=== PATIENT | male | born 1960 | race Caucasian/White ===

== ENCOUNTER 2022-04-07 08:40 | Outpatient (REF) | payer OTHER, SELFPAY ==
[2022-04-07 10:55] LABS: MANUAL DIFF FLAG NO
[2022-04-07 10:56] LABS: Basophils Percent Auto 0.4 % (0-2); Eosinophils Absolute Auto 0.2 X10*3/uL (0.0-0.4); Eosinophils Percent Auto 1.8 % (0-4); Hematocrit 44.9 % (42.0-52.0); Hemoglobin 14.6 g/dl (14.0-18.0); Imm Gran Abs Auto 0.02 X10*3/uL (0.00-0.03); Imm Gran Pct Auto 0.2 % (0.0-0.4); Lymphocytes Absolute Auto 2.3 X10*3/uL (1.2-4.9); Lymphocytes Percent Auto 23.8 % (20-40); Mean Corpuscular HGB Conc 32.5 g/dl (31.0-36.0); Mean Corpuscular Hemoglobin 30.3 pg (27.0-33.0); Mean Corpuscular Volume 93.2 fL (80.0-98.0); Mean Platelet Volume 10.2 fL (9.4-12.4); Monocytes Absolute Auto 0.6 X10*3/uL (0.1-1.2); Monocytes Percent Auto 6.3 % (2-11); Neutrophils Absolute Auto 6.5 x10*3/uL (2.0-8.3); Neutrophils Percent Auto 67.5 % (45-73); Platelet Count 217 X10*3/uL (160-400); Red Blood Count 4.82 X10*6/uL (4.60-5.80); Red Cell Distribution Width 15.3 % (11.0-16.0); White Blood Count 9.7 X10*3/uL (4.8-10.8)
[2022-04-07 11:21] LABS: Alanine Aminotransferase 21 U/L (0-40); Aspartate Amino Transferase 17 U/L (5-37); C Reactive Protein 0.46 mg/dL (< or = 0.50); Estimated Glomerular Filt Rate > 60
[2022-04-07 11:34] LABS: Erythrocyte Sedimentation Rate 7 MM/HR (0-15)
== END 2022-04-07 08:41 | disposition home or self-care (01) ==
LOC: HO.10HDL 08:40
PROVIDERS: Visit Provider Internal Medicine Rheumatology
DX: M05.9 Rheumatoid arthritis with rheumatoid factor, unspecified (principal); Z79.899 Other long term (current) drug therapy
CPT/HCPCS: 36415; 82565; 84450; 84460; 85025; 85652; 86140

== ENCOUNTER 2022-05-22 08:40 | Outpatient (REF) | payer OTHER, SELFPAY ==
[2022-05-22 10:43] LABS: MANUAL DIFF FLAG NO
[2022-05-22 10:54] LABS: Basophils Percent Auto 0.4 % (0-2); Eosinophils Absolute Auto 0.1 X10*3/uL (0.0-0.4); Eosinophils Percent Auto 0.7 % (0-4); Hematocrit 44.6 % (42.0-52.0); Hemoglobin 14.8 g/dl (14.0-18.0); Imm Gran Abs Auto 0.02 X10*3/uL (0.00-0.03); Imm Gran Pct Auto 0.2 % (0.0-0.4); Lymphocytes Absolute Auto 2.2 X10*3/uL (1.2-4.9); Lymphocytes Percent Auto 20.3 % (20-40); Mean Corpuscular HGB Conc 33.2 g/dl (31.0-36.0); Mean Corpuscular Hemoglobin 30.5 pg (27.0-33.0); Mean Corpuscular Volume 91.8 fL (80.0-98.0); Mean Platelet Volume 10.9 fL (9.4-12.4); Monocytes Absolute Auto 0.6 X10*3/uL (0.1-1.2); Neutrophils Absolute Auto 7.7 x10*3/uL (2.0-8.3); Neutrophils Percent Auto 72.4 % (45-73); Platelet Count 212 X10*3/uL (160-400); Red Blood Count 4.86 X10*6/uL (4.60-5.80); Red Cell Distribution Width 14.3 % (11.0-16.0); White Blood Count 10.7 X10*3/uL (4.8-10.8)
[2022-05-22 11:14] LABS: Alanine Aminotransferase 27 U/L (0-40); Aspartate Amino Transferase 21 U/L (5-37); C Reactive Protein 0.92 mg/dL (< or = 0.50); Estimated Glomerular Filt Rate > 60
[2022-05-22 11:50] LABS: Erythrocyte Sedimentation Rate 12 MM/HR (0-15)
== END 2022-05-22 08:41 | disposition home or self-care (01) ==
LOC: HO.10HDL 08:40
PROVIDERS: Visit Provider Internal Medicine Rheumatology
DX: M05.9 Rheumatoid arthritis with rheumatoid factor, unspecified (principal); Z79.899 Other long term (current) drug therapy
CPT/HCPCS: 36415; 82565; 84450; 84460; 85025; 85652; 86140

== ENCOUNTER → 2022-05-23 08:45 | Outpatient (BNVA) | payer OTHER, SELFPAY | PROVIDERS: PCP Internal Medicine; Referring Provider Internal Medicine; Visit Provider Internal Medicine Rheumatology | DX: M05.79 Rheumatoid arthritis with rheumatoid factor of multiple sites without organ or systems involvement (principal); Z79.899 Other long term (current) drug therapy; Z23 Encounter for immunization | CPT/HCPCS: 90471; 90686 ==

== ENCOUNTER 2022-08-31 09:45 | Outpatient (REF) | payer OTHER, SELFPAY ==
[2022-08-31 10:54] LABS: MANUAL DIFF FLAG NO
[2022-08-31 11:26] LABS: Basophils Percent Auto 0.4 % (0-2); Eosinophils Absolute Auto 0.1 X10*3/uL (0.0-0.4); Eosinophils Percent Auto 1.3 % (0-4); Hematocrit 40.5 % (42.0-52.0); Hemoglobin 13.4 g/dl (14.0-18.0); Imm Gran Abs Auto 0.03 X10*3/uL (0.00-0.03); Imm Gran Pct Auto 0.3 % (0.0-0.4); Lymphocytes Absolute Auto 2.2 X10*3/uL (1.2-4.9); Lymphocytes Percent Auto 22.5 % (20-40); Mean Corpuscular HGB Conc 33.1 g/dl (31.0-36.0); Mean Corpuscular Hemoglobin 30.6 pg (27.0-33.0); Mean Corpuscular Volume 92.5 fL (80.0-98.0); Mean Platelet Volume 10.7 fL (9.4-12.4); Monocytes Absolute Auto 0.6 X10*3/uL (0.1-1.2); Monocytes Percent Auto 6.4 % (2-11); Neutrophils Absolute Auto 6.6 x10*3/uL (2.0-8.3); Neutrophils Percent Auto 69.1 % (45-73); Platelet Count 236 X10*3/uL (160-400); Red Blood Count 4.38 X10*6/uL (4.60-5.80); Red Cell Distribution Width 15.6 % (11.0-16.0); White Blood Count 9.6 X10*3/uL (4.8-10.8)
[2022-08-31 11:47] LABS: Alanine Aminotransferase 13 U/L (0-40); Aspartate Amino Transferase 18 U/L (5-37); C Reactive Protein 1.85 mg/dL (< or = 0.50); Estimated Glomerular Filt Rate > 60
[2022-08-31 12:04] LABS: Erythrocyte Sedimentation Rate 9 MM/HR (0-15)
== END 2022-08-31 09:46 | disposition home or self-care (01) ==
LOC: HO.10HDL 09:45
PROVIDERS: Visit Provider Internal Medicine Rheumatology
DX: M05.79 Rheumatoid arthritis with rheumatoid factor of multiple sites without organ or systems involvement (principal); Z79.899 Other long term (current) drug therapy
CPT/HCPCS: 36415; 82565; 84450; 84460; 85025; 85652; 86140

== ENCOUNTER → 2022-09-14 08:29 | Outpatient (BNVA) | payer OTHER, SELFPAY | PROVIDERS: PCP Internal Medicine; Visit Provider Internal Medicine Rheumatology | DX: Z13.89 Encounter for screening for other disorder (principal) ==

== ENCOUNTER 2023-01-05 08:30 | Outpatient (REF) | payer OTHER, SELFPAY ==
[2023-01-05 10:45] LABS: MANUAL DIFF FLAG NO
[2023-01-05 10:51] LABS: Basophils Absolute Auto 0.1 X10*3/uL (0.0-0.2); Basophils Percent Auto 0.5 % (0-2); Eosinophils Absolute Auto 0.2 X10*3/uL (0.0-0.4); Eosinophils Percent Auto 1.5 % (0-4); Hematocrit 42.2 % (42.0-52.0); Imm Gran Abs Auto 0.03 X10*3/uL (0.00-0.03); Imm Gran Pct Auto 0.3 % (0.0-0.4); Lymphocytes Absolute Auto 2.8 X10*3/uL (1.2-4.9); Mean Corpuscular HGB Conc 33.2 g/dl (31.0-36.0); Mean Corpuscular Hemoglobin 30.7 pg (27.0-33.0); Mean Corpuscular Volume 92.5 fL (80.0-98.0); Mean Platelet Volume 10.6 fL (9.4-12.4); Monocytes Absolute Auto 0.7 X10*3/uL (0.1-1.2); Neutrophils Absolute Auto 6.7 x10*3/uL (2.0-8.3); Neutrophils Percent Auto 63.7 % (45-73); Platelet Count 237 X10*3/uL (160-400); Red Blood Count 4.56 X10*6/uL (4.60-5.80); Red Cell Distribution Width 15.8 % (11.0-16.0); White Blood Count 10.5 X10*3/uL (4.8-10.8)
[2023-01-05 11:06] LABS: Alanine Aminotransferase 21 U/L (0-40); Aspartate Amino Transferase 23 U/L (5-37); C Reactive Protein 0.79 mg/dL (< or = 0.50); Estimated Glomerular Filt Rate > 60
[2023-01-05 11:33] LABS: Erythrocyte Sedimentation Rate 7 MM/HR (0-15)
== END 2023-01-05 08:31 | disposition home or self-care (01) ==
LOC: HO.10HDL 08:30
PROVIDERS: Visit Provider Internal Medicine Rheumatology
DX: M05.79 Rheumatoid arthritis with rheumatoid factor of multiple sites without organ or systems involvement (principal); Z79.899 Other long term (current) drug therapy
CPT/HCPCS: 36415; 82565; 84450; 84460; 85025; 85652; 86140

== ENCOUNTER → 2023-01-11 07:52 | Outpatient (BNVA) | payer OTHER, SELFPAY | PROVIDERS: PCP Internal Medicine; Visit Provider Internal Medicine Rheumatology ==

== ENCOUNTER 2023-01-11 08:32 | Outpatient (REF) | payer OTHER, SELFPAY | END 2023-01-11 08:33 | disposition home or self-care (01) | LOC: HO.10HDL 08:32 | PROVIDERS: Visit Provider Internal Medicine Rheumatology | DX: Z11.1 Encounter for screening for respiratory tuberculosis (principal); J44.9 Chronic obstructive pulmonary disease, unspecified | CPT/HCPCS: 36415; 86481 ==

== ENCOUNTER 2023-04-24 08:22 | Outpatient (REF) | payer OTHER, SELFPAY ==
[2023-04-24 11:06] LABS: MANUAL DIFF FLAG NO
[2023-04-24 11:13] LABS: Basophils Absolute Auto 0.1 X10*3/uL (0.0-0.2); Basophils Percent Auto 0.5 % (0-2); Eosinophils Absolute Auto 0.1 X10*3/uL (0.0-0.4); Eosinophils Percent Auto 0.9 % (0-4); Hematocrit 45.4 % (42.0-52.0); Hemoglobin 14.8 g/dl (14.0-18.0); Imm Gran Abs Auto 0.02 X10*3/uL (0.00-0.03); Imm Gran Pct Auto 0.2 % (0.0-0.4); Lymphocytes Absolute Auto 3.1 X10*3/uL (1.2-4.9); Lymphocytes Percent Auto 26.9 % (20-40); Mean Corpuscular HGB Conc 32.6 g/dl (31.0-36.0); Mean Corpuscular Hemoglobin 30.5 pg (27.0-33.0); Mean Corpuscular Volume 93.6 fL (80.0-98.0); Mean Platelet Volume 10.2 fL (9.4-12.4); Monocytes Absolute Auto 0.7 X10*3/uL (0.1-1.2); Monocytes Percent Auto 6.1 % (2-11); Neutrophils Absolute Auto 7.4 x10*3/uL (2.0-8.3); Neutrophils Percent Auto 65.4 % (45-73); Platelet Count 289 X10*3/uL (160-400); Red Blood Count 4.85 X10*6/uL (4.60-5.80); Red Cell Distribution Width 14.8 % (11.0-16.0); White Blood Count 11.3 X10*3/uL (4.8-10.8)
[2023-04-24 11:26] LABS: Alanine Aminotransferase 20 U/L (0-40); Aspartate Amino Transferase 16 U/L (5-37); C Reactive Protein 0.21 mg/dL (< or = 0.50)
[2023-04-24 11:50] LABS: Erythrocyte Sedimentation Rate 11 MM/HR (0-15)
== END 2023-04-24 08:23 | disposition home or self-care (01) ==
LOC: HO.10HDL 08:22
PROVIDERS: Visit Provider Internal Medicine Rheumatology
DX: M05.79 Rheumatoid arthritis with rheumatoid factor of multiple sites without organ or systems involvement (principal); Z79.899 Other long term (current) drug therapy
CPT/HCPCS: 36415; 84450; 84460; 85025; 85652; 86140

== ENCOUNTER 2023-04-30 08:06 | Outpatient (AMB) | payer OTHER, SELFPAY ==
--- NOTE | 2023-04-30 08:04 | A.OFFVIS_ITS ---
Intake Vital Signs 04/30/23 08:06 Height 5 ft 8 in Weight 168 lb 13.985 oz BMI 25.7 BP 140/90 H Blood Pressure Location Lt brachial Position Sitting Pulse 107 H Pulse Source Pulse Oximeter Temp 97.2 F Temp Source Skin Pulse Oximetry (%) 96 Oxygen Delivery Method Room Air Intake Visit Reasons: RA Intake Note: Patient presents today to follow up on RA. 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 He remains on 20 mg weekly methotrexate and folic acid 1 mg daily. THe takes 2 tablets to 4 tablets of aspirin in the mornings as well. Last time when he was here we thought he had more synovitis in the wrists so Enbrel 50 mg weekly was added. That has improved the situation as he does not seem to have much dis comfort at all in the wrists. 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 About 2 or 3 weeks ago he did call us with symptoms of the COVID infection. He felt only sick for a day or 2. We told him to hold a dose of th Enbrel. His was sick her for about a week. His breathing has remained stable with no productive cough. He notes a skin lesion on the back of his neck. He did see the PCP about this and topical antibiotic ointment was recommended. [facility] Medical History (Updated 05/23/22 @ 07:45 by Bret Bunn MD) Smoker Alcohol abuse Ventral hernia Surgical History History of hydrocelectomy Family History Mother Hypertension Father No problems noted. Social History Household Members: Spouse Housing: House Are you a primary pediatric acute care unit nurse to a significant other at home: No Do you presently have visiting nurse or other home services: No Alcohol intake: never Tobacco use type: Cigar e-Cigarette/Vaping Use: Never Used service: No Current occupational status: employed Current occupation: SELF EMPLOYED [employer] Review of Systems Const Details: Negative for appetite change, weight change, fever, chills, malaise and fatigue Eyes Details: Negative for vision change, dry eyes,headaches and dizziness ENT Details: Negative for hearing change, tinnitus, oral ulcer, nose bleeds and oral dryness. Card Details: Negative chest pain, edema and syncope Resp Details: Negative for SOB, cough and wheezing GI Details: Negative indigestion/heartburn, nausea, abdominal pain, bowel changes, diarrhea, constipation and bloody stool. Jose/Lymph Details: Negative for excessive bruising or bleeding. Physical Exam Vital Signs: Last Vital Signs Temp 97.2 F 04/30/23 08:06 Pulse 107 H 04/30/23 08:06 BP 140/90 H 04/30/23 08:06 Pulse Ox 96 04/30/23 08:06 Oxygen Delivery Method Room Air 04/30/23 08:06 BMI result Body Mass Index 25.7 APPEARANCE: Patient in no acute distress EYES no redness, pupils equal and reactive to light, eyelids normal EXTREMITIES: No edema, no calf tenderness, normal peripheral pulses. SKIN: On the back of the neck just below the hairline is a 1 cm area that looks like an abrasion. It is not indurated and the surrounding skin is not red. This potentially could be just scratched area or perhaps a draining sebaceous cyst although I do not feel any subcutaneous structure. I told him he should keep an eye on it and topical antibiotics would be appropriate for now. If redness extends beyond the area of the abraded skin he may need some oral antibiotics. JOINT EXAM: Cervical Spine:.? Full range of motion without pain; no tenderness. Thoracic Spine:.? No scoliosis.? No tenderness on palpation. Lumbar Spine:.? Alignment normal.? Full range of motion without pain, no tenderness. Chest Wall:.? No tenderness, swelling, increased warmth or erythema. Hands:? Right: Mild swelling of the 1st and 3rd MCP joints, MCP are not tender.? There is nontender bony enlargement at the 2nd DIP with some flexion deformity.? The patient said this is a result of old injury.? No thenar atrophy or sensory loss.? Left:? No tenderness with slight swelling at the 1st MCP.? There is mild bony enlargement at the 2nd through 5th PIP joints.? These are not tender. Wrists:? Right:? No pain with flexion extension at 45 degrees. There is minimal swelling and no tenderness.? No redness or warmth.? Left:? No discomfort with flexion extension at? 60 degrees with no tenderness or swelling. Elbows:. Normal pain-free range of motion without tenderness, swelling, increased warmth or erythema. Shoulders:.?? Full range of motion without pain. No tenderness, weakness, swelling, increased warmth or erythema. Hips:.? Full range of motion without pain. Hip bursa:.? No tenderness. Knees:.?? Normal pain-free range of motion with mild patellofemoral crepitus but no effusion, tenderness, swelling, increased warmth or erythema.? Ankles:.? Normal pain-free range of motion without tenderness, swelling, increased warmth or erythema. Feet:.? Normal pain-free range of motion with mild 1st MTP bony enlargement and tenderness.? Elsewhere no swelling, increased warmth or erythema. ? Results Reviewed Results Reviewed: Laboratory Tests 04/24/23 04/24/23 08:30 09:30 WBC 11.3 H Hgb 14.8 ESR 11 AST 16 ALT 20 C-Reactive Protein 0.21 Assessment & Plan Assessment & Plan (1) Long-term use of immunosuppressant medication: Code(s): Z79.899 - Other residential (current) drug therapy (2) COPD (chronic obstructive pulmonary disease): Code(s): J44.9 - Chronic obstructive pulmonary disease, unspecified (3) Seropositive rheumatoid arthritis of multiple joints: Comment: Onset August,. RF and CCP positive Methotrexate started end of September 2016; Humira added at the end of January 2017 Humira held -02/23 - skin infection/trauma -not restarted but methotrexate continued Code(s): M05.79 - Rheumatoid arthritis with rheumatoid factor of multiple sites without organ or systems involvement Plan: Rheumatoid arthritis with some improvement in symptoms with the addition of the Enbrel. His COPD seems stable and the COVID infection did not flare-up any significant respiratory symptoms. I think he could continue with the current regimen. He should have his check the skin lesion and if there is increasing redness around the abrasion site systemic antibiotics may be necessary. He has not yet received the flu shot. I said he should try to get this done soon. The COVID vaccine could be put off for 2 months since he just had an infection. I told him to hold the methotrexate the week after the vaccinations. He should get lab work again in June and August. We will arrange for follow-up in 4 months. Orders: Orders Alanine Aminotransferase Today M05.79 - Rheumatoid arthritis with rheumatoid factor of multiple sites without organ or systems involvement, Z79.899 - Other residential (current) drug therapy Complete Blood Count Auto Diff Today M05.79 - Rheumatoid arthritis with rheumatoid factor of multiple sites without organ or systems involvement, Z79.899 - Other director long term care (current) drug therapy Alanine Aminotransferase 1 Month M05.79 - Rheumatoid arthritis with rheumatoid factor of multiple sites without organ or systems involvement, Z79.899 - Other director long term care (current) drug therapy Complete Blood Count Auto Diff 1 Month M05.79 - Rheumatoid arthritis with rheumatoid factor of multiple sites without organ or systems involvement, Z79.899 - Other director long term care (current) drug therapy Creatinine 1 Month M05.79 - Rheumatoid arthritis with rheumatoid factor of multiple sites without organ or systems involvement, Z79.899 - Other residential (current) drug therapy Aspartate Amino Transferase 1 Month M05.79 - Rheumatoid arthritis with rheumatoid factor of multiple sites without organ or systems involvement, Z79.899 - Other director long term care (current) drug therapy Erythrocyte Sedimentation Rate Today M05.79 - Rheumatoid arthritis with rheumatoid factor of multiple sites without organ or systems involvement C Reactive Protein Today M05.79 - Rheumatoid arthritis with rheumatoid factor of multiple sites without organ or systems involvement Aspartate Amino Transferase Today M05.79 - Rheumatoid arthritis with rheumatoid factor of multiple sites without organ or systems involvement, Z79.899 - Other director long term care (current) drug therapy Creatinine Today M05.79 - Rheumatoid arthritis with rheumatoid factor of multiple sites without organ or systems involvement, Z79.899 - Other residential (current) drug therapy Erythrocyte Sedimentation Rate 1 Month M05.79 - Rheumatoid arthritis with rheumatoid factor of multiple sites without organ or systems involvement C Reactive Protein 1 Month M05.79 - Rheumatoid arthritis with rheumatoid factor of multiple sites without organ or systems involvement Coding Level of Care Code Est Pt Level 3 (77675) Diagnoses Long-term use of immunosuppressant medication Z79.899 COPD (chronic obstructive pulmonary disease) J44.9 Seropositive rheumatoid arthritis of multiple joints M05.79
[2023-04-30 08:06] VITALS: BP 140/90; PULSE 107; TEMP 36.2; O2SAT 96; BMI 25.7
== END 2023-04-30 08:24 | disposition home or self-care (01) ==
PROVIDERS: PCP Internal Medicine; Visit Provider Internal Medicine Rheumatology
DX: Z79.899 Other long term (current) drug therapy (principal); J44.9 Chronic obstructive pulmonary disease, unspecified; M05.79 Rheumatoid arthritis with rheumatoid factor of multiple sites without organ or systems involvement
CPT/HCPCS: 99213

== ENCOUNTER → 2023-04-30 08:06 | Outpatient (BNVA) | payer OTHER, SELFPAY | PROVIDERS: PCP Internal Medicine; Visit Provider Internal Medicine Rheumatology ==

== ENCOUNTER 2023-08-28 08:40 | Outpatient (REF) | payer OTHER, SELFPAY ==
[2023-08-28 10:51] LABS: MANUAL DIFF FLAG NO
[2023-08-28 11:04] LABS: Basophils Absolute Auto 0.1 X10*3/uL (0.0-0.2); Basophils Percent Auto 0.5 % (0-2); Eosinophils Absolute Auto 0.3 X10*3/uL (0.0-0.4); Hematocrit 45.3 % (42.0-52.0); Hemoglobin 15.1 g/dl (14.0-18.0); Imm Gran Abs Auto 0.03 X10*3/uL (0.00-0.03); Imm Gran Pct Auto 0.3 % (0.0-0.4); Lymphocytes Absolute Auto 2.7 X10*3/uL (1.2-4.9); Lymphocytes Percent Auto 28.8 % (20-40); Mean Corpuscular HGB Conc 33.3 g/dl (31.0-36.0); Mean Platelet Volume 10.7 fL (9.4-12.4); Monocytes Absolute Auto 0.5 X10*3/uL (0.1-1.2); Monocytes Percent Auto 5.8 % (2-11); Neutrophils Absolute Auto 5.8 x10*3/uL (2.0-8.3); Neutrophils Percent Auto 61.6 % (45-73); Platelet Count 197 X10*3/uL (160-400); Red Blood Count 4.87 X10*6/uL (4.60-5.80); Red Cell Distribution Width 14.5 % (11.0-16.0); White Blood Count 9.4 X10*3/uL (4.8-10.8)
[2023-08-28 11:07] LABS: Alanine Aminotransferase 20 U/L (0-40); Aspartate Amino Transferase 20 U/L (5-37); C Reactive Protein 0.26 mg/dL (< or = 0.50); Estimated Glomerular Filt Rate > 60
[2023-08-28 11:49] LABS: Erythrocyte Sedimentation Rate 2 MM/HR (0-15)
== END 2023-08-28 08:41 | disposition home or self-care (01) ==
LOC: HO.10HDL 08:40
PROVIDERS: Referring Provider Internal Medicine; Visit Provider Internal Medicine Rheumatology
DX: M05.79 Rheumatoid arthritis with rheumatoid factor of multiple sites without organ or systems involvement (principal); Z79.899 Other long term (current) drug therapy
CPT/HCPCS: 36415; 82565; 84450; 84460; 85025; 85652; 86140

== ENCOUNTER 2023-08-31 08:41 | Outpatient (AMB) | payer OTHER, SELFPAY ==
--- NOTE | 2023-08-31 08:42 | A.OFFVIS_ITS ---
Intake Vital Signs 08/31/23 08:44 Height 5 ft 8 in Weight 175 lb 14.862 oz BMI 26.7 BP 118/70 Blood Pressure Location Rt brachial Position Sitting Pulse 72 Pulse Source Pulse Oximeter Temp 97 F Temp Source Skin Pulse Oximetry (%) 94 Oxygen Delivery Method Room Air Intake Visit Reasons: RA with fnp Intake Note: Patient last seen 04/30/[address] Bunn, presents today for RA follow up and test results. 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 Laureano, 63yoM returns today for follow-up of his Rheumatoid arthritis. He remains on 20 mg weekly methotrexate, folic acid 1 mg daily and Enbrel 50mg QW. He takes 2 tablets to 4 tablets of aspirin in the mornings as well. He continues to do well and offers no concerns today, his wrists and hands are not swollen or tender per patient. The skin lesion at the nape of the neck has resolved with topical antibiotics. 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 He notes a skin lesion on the back of his neck. He did see the PCP about this and topical antibiotic ointment was recommended. He denies s/s of uveitis or Psoriasis. Prior Visit 04/30/2023 Dr. Bunn The patient returns for evaluation of his rheumatoid arthritis. He remains on 20 mg weekly methotrexate and folic acid 1 mg daily. THe takes 2 tablets to 4 tablets of aspirin in the mornings as well. Last time when he was here we thought he had more synovitis in the wrists so Enbrel 50 mg weekly was added. That has improved the situation as he does not seem to have much discomfort at all in the wrists. 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 About 2 or 3 weeks ago he did call us with symptoms of the COVID infection. He felt only sick for a day or 2. We told him to hold a dose of th Enbrel. His was sick her for about a week. His breathing has remained stable with no productive cough. He notes a skin lesion on the back of his neck. He did see the PCP about this and topical antibiotic ointment was recommended. [facility] Medical History (Updated 08/31/23 @ 08:53 by JAELYN Armas-BC) Smoker Alcohol abuse Ventral hernia Surgical History History of hydrocelectomy Family History Mother Hypertension Father No problems noted. Social History Household Members: Spouse Housing: House Are you a primary career development associate to a significant other at home: No Do you presently have visiting nurse or other home services: No Alcohol intake: never Tobacco use type: Cigar e-Cigarette/Vaping Use: Never Used service: No Current occupational status: employed Current occupation: SELF EMPLOYED [employer] Review of Systems Const All systems reviewed & are unremarkable except as noted in HPI and below Physical Exam Vital Signs: Last Vital Signs Temp 97 F 08/31/23 08:44 BMI result Body Mass Index 26.7 APPEARANCE: Patient in no acute distress EYES no redness, pupils equal and reactive to light, eyelids normal EXTREMITIES: No edema, no calf tenderness, normal peripheral pulses. SKIN: On the back of the neck just below the hairline is the 1 cm area from 04/2023 visit is resolved. JOINT EXAM: Cervical Spine:.? Full range of motion without pain; no tenderness. Thoracic Spine:.? No scoliosis.? No tenderness on palpation. Lumbar Spine:.? Alignment normal.? Full range of motion without pain, no tenderness. Chest Wall:.? No tenderness, swelling, increased warmth or erythema. Hands:? Right: No more mild swelling or tenderness of the 1st and 3rd MCP joints, and other MCP.? There is nontender bony enlargement at the 2nd DIP with some flexion deformity.? The patient said this is a result of old injury.? No thenar atrophy or sensory loss.? Left:? No tenderness with slight swelling at the 1st MCP.? There is mild bony enlargement at the 2nd through 5th PIP joints.? These are not tender. Wrists:? Right:? No pain with flexion extension at 45 degrees. There is no more minimal swelling or tenderness.? No redness or warmth.? Left:? No discomfort with flexion extension at? 60 degrees with no tenderness or swelling. Elbows:. Normal pain-free range of motion without tenderness, swelling, increased warmth or erythema. Shoulders:.?? Full range of motion without pain. No tenderness, weakness, swelling, increased warmth or erythema. Hips:.? Full range of motion without pain. Hip bursa:.? No tenderness. Knees:.?? Normal pain-free range of motion with mild patellofemoral crepitus but no effusion, tenderness, swelling, increased warmth or erythema.? Ankles:.? Normal pain-free range of motion without tenderness, swelling, increased warmth or erythema. Feet:.? Normal pain-free range of motion with mild 1st MTP bony enlargement and tenderness.? Elsewhere no swelling, increased warmth or erythema. ? Results Reviewed Results Reviewed: Laboratory Tests 08/28/23 08:45 WBC 9.4 RBC 4.87 Hgb 15.1 Hct 45.3 ESR 2 Creatinine 0.93 Estimated GFR > 60 AST 20 ALT 20 C-Reactive Protein 0.26 Assessment & Plan Assessment & Plan (1) Long-term use of immunosuppressant medication: Code(s): Z79.899 - Other [place] [facility] (current[facility] drug therapy (2) COPD (chronic obstructive pulmonary disease): Code(s): J44.9 - Chronic obstructive pulmonary disease, unspecified Qualifiers: COPD type: unspecified COPD Qualified Code(s): J44.9 - Chronic obstructive pulmonary disease, unspecified (3) Seropositive rheumatoid arthritis of multiple joints: Comment: Onset August,. 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 He continues to do well and there is no synovitis tenderness to his MCP and IP joints on PE today. His wrist is nontender and there is no swelling. The patient is happy with his progress and is able to use his hands effectively at work. I think we can continue with the current regimen of Methotrexate 20mg QW, folic acid 1 mg daily and Enbrel 50mg QW. There is an outstanding hand x-ray I encouraged patient to have it done. #Senior Care use: His labs are grossly normal. We will continue to monitor CBC, CMP for liver and Kidney functions. The patient knows to hold medications if he develops fever, infections, non-healing wounds to allow for healing and recovery. #COPD: He is without respiratory symptoms today. Follow-up in 4 months Orders: Orders Alanine Aminotransferase 4 Months M05.79 - Rheumatoid arthritis with rheumatoid factor of multiple sites without organ or systems involvement, Z79.899 - Other intermediate teacher (current) drug therapy Aspartate Amino Transferase 4 Months M05.79 - Rheumatoid arthritis with rheumatoid factor of multiple sites without organ or systems involvement, Z79.899 - Other [place] [facility] drug therapy C Reactive Protein 4 Months M05.79 - Rheumatoid arthritis with rheumatoid factor of multiple sites without organ or systems involvement Erythrocyte Sedimentation Rate 4 Months M05.79 - Rheumatoid arthritis with rheumatoid factor of multiple sites without organ or systems involvement XR hand RT min 3V Today M05.79 - Rheumatoid arthritis with rheumatoid factor of multiple sites without organ or systems involvement Complete Blood Count Auto Diff 4 Months M05.79 - Rheumatoid arthritis with rheumatoid factor of multiple sites without organ or systems involvement, Z79.899 - Other [place] [facility] (current) drug therapy Creatinine 4 Months M05.79 - Rheumatoid arthritis with rheumatoid factor of multiple sites without organ or systems involvement, Z79.899 - Other intermediate teacher (current) drug therapy XR hand LT min 3V Today M05.79 - Rheumatoid arthritis with rheumatoid factor of multiple sites without organ or systems involvement Coding Level of Care Code Est Pt Level 3 (14976) Diagnoses Long-term use of immunosuppressant medication Z79.899 Chronic obstructive pulmonary disease, unspecified COPD type J44.9 COPD type: unspecified COPD Seropositive rheumatoid arthritis of multiple joints M05.79
[2023-08-31 08:44] VITALS: BP 118/70; PULSE 72; TEMP 36.1; O2SAT 94; BMI 26.7
== END 2023-08-31 09:05 | disposition home or self-care (01) ==
PROVIDERS: PCP Internal Medicine; Visit Provider Nurse Practitioner Family
DX: Z79.899 Other long term (current) drug therapy (principal); J44.9 Chronic obstructive pulmonary disease, unspecified; M05.79 Rheumatoid arthritis with rheumatoid factor of multiple sites without organ or systems involvement
CPT/HCPCS: 99213

== ENCOUNTER → 2023-08-31 08:41 | Outpatient (BNVA) | payer OTHER, SELFPAY | PROVIDERS: PCP Internal Medicine; Visit Provider Nurse Practitioner Family ==

== ENCOUNTER 2023-12-28 09:20 | Outpatient (REF) | payer OTHER, SELFPAY ==
[2023-12-28 10:46] LABS: MANUAL DIFF FLAG NO
[2023-12-28 10:51] LABS: Basophils Absolute Auto 0.1 X10*3/uL (0.0-0.2); Basophils Percent Auto 0.5 % (0-2); Eosinophils Absolute Auto 0.1 X10*3/uL (0.0-0.4); Eosinophils Percent Auto 1.3 % (0-4); Hematocrit 43.9 % (42.0-52.0); Hemoglobin 14.9 g/dl (14.0-18.0); Imm Gran Abs Auto 0.02 X10*3/uL (0.00-0.03); Imm Gran Pct Auto 0.2 % (0.0-0.4); Lymphocytes Absolute Auto 2.9 X10*3/uL (1.2-4.9); Lymphocytes Percent Auto 30.7 % (20-40); Mean Corpuscular HGB Conc 33.9 g/dl (31.0-36.0); Mean Corpuscular Hemoglobin 31.5 pg (27.0-33.0); Mean Corpuscular Volume 92.8 fL (80.0-98.0); Mean Platelet Volume 10.5 fL (9.4-12.4); Monocytes Absolute Auto 0.8 X10*3/uL (0.1-1.2); Monocytes Percent Auto 7.9 % (2-11); Neutrophils Absolute Auto 5.7 x10*3/uL (2.0-8.3); Neutrophils Percent Auto 59.4 % (45-73); Platelet Count 186 X10*3/uL (160-400); Red Blood Count 4.73 X10*6/uL (4.60-5.80); Red Cell Distribution Width 14.6 % (11.0-16.0); White Blood Count 9.5 X10*3/uL (4.8-10.8)
[2023-12-28 11:17] LABS: Alanine Aminotransferase 18 U/L (0-40); Aspartate Amino Transferase 20 U/L (5-37); C Reactive Protein 0.21 mg/dL (< or = 0.50); Estimated Glomerular Filt Rate > 60
[2023-12-28 11:41] LABS: Erythrocyte Sedimentation Rate 6 MM/HR (0-15)
== END 2023-12-28 09:21 | disposition home or self-care (01) ==
LOC: HO.10HDL 09:20
PROVIDERS: Visit Provider Nurse Practitioner Family
DX: M05.79 Rheumatoid arthritis with rheumatoid factor of multiple sites without organ or systems involvement (principal); Z79.899 Other long term (current) drug therapy
CPT/HCPCS: 36415; 82565; 84450; 84460; 85025; 85652; 86140

== ENCOUNTER 2024-01-02 12:33 | Outpatient (AMB) | payer OTHER, SELFPAY ==
[2024-01-02 12:44] VITALS: BP 142/70; BMI 26.8
--- NOTE | 2024-01-02 12:44 | A.OFFVIS_ITS ---
Vital Signs 01/02/24 12:44 Height 5 ft 8 in Weight 176 lb 5.917 oz BMI 26.8 BP 142/70 H Blood Pressure Location Rt brachial Position Sitting Intake Visit Reasons: SeroPos RA/lm Intake Note: Pt seen today for RA follow up. 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 Accompanied by: Self / Same As Patient Allergies No Known Allergies Allergy (Verified 01/02/24 12:49) Medication List - Last Reconciled 01/02/24 by Cassius Chase MD albuterol sulfate 90 mcg/actuation (Proventil HFA) 2 puffs inhalation Q6H PRN etanercept (Enbrel SureClick) 50 mg subcut QWEEK folic acid 1 mg PO DAILY methotrexate sodium 20 mg (8 x 2.5 mg) PO QWEEK omega 9-olp-lie-fish oil 1,000 mg (120 mg-180 mg) (Fish Oil) 1 cap PO DAILY umeclidinium-vilanterol 62.5-25 mcg/actuation (Anoro Ellipta) 1 inh inhalation DAILY HPI Comments Details: This is a 63-year-old male with seropositive RA who returns for follow-up. He is on methotrexate 20 mg weekly and will weekly. States that he is doing quite well overall with no joint pain swelling or stiffness. States that he is planning to stop smoking very soon [facility] Medical History Smoker Alcohol abuse Ventral hernia Surgical History History of hydrocelectomy Family History Mother Hypertension Father No problems noted. Social History Household Members: Spouse Housing: House Are you a primary field care coordinator to a significant other at home: No Do you presently have visiting nurse or other home services: No Alcohol intake: never Tobacco use type: Cigar e-Cigarette/Vaping Use: Never Used service: No Current occupational status: employed Current occupation: SELF EMPLOYED [employer] Review of Systems Musc Denies arthralgias, Denies joint swelling and Denies stiffness Physical Exam Const General: cooperative, healthy appearing and comfortable Nutritional Appearance: overweight Orientation/consciousness: patient oriented x3 Limitations: no limitations HEENT Head: Yes normocephalic and Yes atraumatic Mouth: moist mucous membranes Resp Effort & Inspection: normal respiratory effort and able to speak in complete sentences Auscultation: clear to auscultation bilaterally Cardio Rate: regular rate Rhythm: regular rhythm Skin General skin exam: no rashes or lesions noted Neuro General: patient oriented x3 Extrem Other: Osteoarthritic changes of both hands with no active synovitis Multi of right index DIP related to old trauma Assessment & Plan Assessment & Plan (1) Seropositive rheumatoid arthritis of multiple joints: Comment: Onset August,. RF and CCP positive Methotrexate started end of September 2016; Humira added at the end of January 2017 Humira held -02/23 - skin infection/trauma -not restarted but methotrexate continued Enbrel added 01/28 Code(s): M05.79 - Rheumatoid arthritis with rheumatoid factor of multiple sites without organ or systems involvement Category: Medical Plan: This is a 63-year-old male with seropositive RA who presents for follow-up. Doing quite well with no active synovitis on methotrexate 20 mg weekly, folic acid 1 mg daily and Enbrel weekly. Continue current meds. Will consider lowering methotrexate in subsequent visits Labs in 3 months and in 6 months before next visit (2) Long-term use of immunosuppressant medication: Code(s): Z79.899 - Other f[facility] (current) drug therapy Category: Medical Plan: Monitor safety lab Plan I spent 25 minutes reviewing patient's chart, evaluating patient, ordering diagnostic workup, counseling patient and documenting in the chart Orders: Orders Complete Blood Count Auto Diff 3 Months M05.79 - Rheumatoid arthritis with rheumatoid factor of multiple sites without organ or systems involvement C Reactive Protein 3 Months M05.79 - Rheumatoid arthritis with rheumatoid factor of multiple sites without organ or systems involvement Erythrocyte Sedimentation Rate 3 Months M05.79 - Rheumatoid arthritis with rheumatoid factor of multiple sites without organ or systems involvement Comprehensive Met. Panel 3 Months M05.79 - Rheumatoid arthritis with rheumatoid factor of multiple sites without organ or systems involvement Complete Blood Count Auto Diff 6 Months M05.79 - Rheumatoid arthritis with rheumatoid factor of multiple sites without organ or systems involvement, Z79.899 - Other [facility] (current) drug therapy Comprehensive Met. Panel 6 Months M05.79 - Rheumatoid arthritis with rheumatoid factor of multiple sites without organ or systems involvement, Z79.899 - Other emt intermediate (current) drug therapy C Reactive Protein 6 Months M05.79 - Rheumatoid arthritis with rheumatoid factor of multiple sites without organ or systems involvement, Z79.899 - Other emt intermediate (current) drug therapy Erythrocyte Sedimentation Rate 6 Months M05.79 - Rheumatoid arthritis with rheumatoid factor of multiple sites without organ or systems involvement, Z79.899 - Other [facility] (current) drug therapy Hepatitis A,B,C Profile 6 Months Z11.59 - Encounter for screening for other viral diseases Medications: Refilled methotrexate sodium 20 mg (8 x 2.5 mg) PO QWEEK 96 tabs 0RF M05.9 - Rheumatoid arthritis with rheumatoid factor, unspecified etanercept (Enbrel SureClick) 50 mg subcut QWEEK 4 mL 5RF M05.79 - Rheumatoid arthritis with rheumatoid factor of multiple sites without organ or systems involvement folic acid 1 mg PO DAILY 90 tabs 3RF M05.9 - Rheumatoid arthritis with rheumatoid factor, unspecified Coding Level of Care Code Est Pt Level 4 (16878) Diagnoses Seropositive rheumatoid arthritis of multiple joints M05.79 Long-term use of immunosuppressant medication Z79.892
== END 2024-01-02 12:58 | disposition home or self-care (01) ==
PROVIDERS: PCP Internal Medicine; Visit Provider Student in an Organized Health Care Education/Training Program
DX: M05.79 Rheumatoid arthritis with rheumatoid factor of multiple sites without organ or systems involvement (principal); Z79.899 Other long term (current) drug therapy
CPT/HCPCS: 99214

== ENCOUNTER → 2024-01-02 12:33 | Outpatient (BNVA) | payer OTHER, SELFPAY | PROVIDERS: PCP Internal Medicine; Visit Provider Student in an Organized Health Care Education/Training Program ==

== ENCOUNTER 2024-05-20 10:11 | Outpatient (REF) | payer OTHER, SELFPAY ==
[2024-05-20 13:17] LABS: MANUAL DIFF FLAG NO
[2024-05-20 13:35] LABS: Basophils Absolute Auto 0.1 X10*3/uL (0.0-0.2); Basophils Percent Auto 0.6 % (0-2); Eosinophils Absolute Auto 0.2 X10*3/uL (0.0-0.4); Eosinophils Percent Auto 2.4 % (0-4); Hematocrit 41.7 % (42.0-52.0); Hemoglobin 13.9 g/dl (14.0-18.0); Imm Gran Abs Auto 0.03 X10*3/uL (0.00-0.03); Imm Gran Pct Auto 0.3 % (0.0-0.4); Lymphocytes Absolute Auto 2.8 X10*3/uL (1.2-4.9); Lymphocytes Percent Auto 31.4 % (20-40); Mean Corpuscular HGB Conc 33.3 g/dl (31.0-36.0); Mean Corpuscular Hemoglobin 32.2 pg (27.0-33.0); Mean Corpuscular Volume 96.5 fL (80.0-98.0); Mean Platelet Volume 10.6 fL (9.4-12.4); Monocytes Absolute Auto 0.5 X10*3/uL (0.1-1.2); Monocytes Percent Auto 6.1 % (2-11); Neutrophils Absolute Auto 5.2 x10*3/uL (2.0-8.3); Neutrophils Percent Auto 59.2 % (45-73); Platelet Count 207 X10*3/uL (160-400); Red Blood Count 4.32 X10*6/uL (4.60-5.80); Red Cell Distribution Width 15.3 % (11.0-16.0); White Blood Count 8.8 X10*3/uL (4.8-10.8)
[2024-05-20 14:12] LABS: Alanine Aminotransferase 26 U/L (0-40); Albumin Level 4.2 g/dL (3.5-5.0); Alkaline Phosphatase 69 U/L (39-117); Anion Gap 10 (12-20); Aspartate Amino Transferase 25 U/L (5-37); Bilirubin Total 0.8 mg/dL (0.0-1.0); Blood Urea Nitrogen 13 mg/dL (9-16); C Reactive Protein 0.22 mg/dL (< or = 0.50); Calcium 9.7 mg/dL (8.4-10.2); Carbon Dioxide 27 mmol/L (22-29); Chloride 106 mmol/L (96-108); Estimated Glomerular Filt Rate > 60; Glucose Random 97 mg/dL (60-115); Sodium 139 mmol/L (135-145)
[2024-05-20 14:13] LABS: Erythrocyte Sedimentation Rate 7 MM/HR (0-15)
== END 2024-05-20 10:12 | disposition home or self-care (01) ==
LOC: HO.HMGCLDS 10:11
PROVIDERS: Visit Provider Student in an Organized Health Care Education/Training Program
DX: M05.79 Rheumatoid arthritis with rheumatoid factor of multiple sites without organ or systems involvement (principal)
CPT/HCPCS: 36415; 80053; 85025; 85652; 86140

== ENCOUNTER 2024-07-03 08:20 | Outpatient (AMB) | payer OTHER, SELFPAY ==
--- NOTE | 2024-07-03 08:27 | A.OFFVIS_ITS ---
Vital Signs 07/03/24 08:32 Height 5 ft 8 in Weight 182 lb 12.211 oz BMI 27.8 BP 142/80 H Blood Pressure Location Lt brachial Position Sitting Pulse 97 Pulse Source Pulse Oximeter Pulse Oximetry (%) 94 Oxygen Delivery Method Room Air Intake Visit Reasons: RA Intake Note: Patient presents for RA. Allergies No Known Allergies Allergy (Verified 07/03/24 08:31) Medication List - Last Reconciled 07/03/24 by Cassius Chase MD albuterol sulfate 90 mcg/actuation (Proventil HFA) 2 puffs inhalation Q6H PRN etanercept (Enbrel SureClick) 50 mg subcut QWEEK folic acid 1 mg PO DAILY methotrexate sodium 15 mg (6 x 2.5 mg) PO QWEEK omega 6-lyx-vom-fish oil 1,000 (120-180) mg (Fish Oil) 1 cap PO DAILY umeclidinium-vilanterol 62.5-25 mcg/actuation (Anoro Ellipta) 1 inh inhalation DAILY HPI Comments Details: This is a 63-year-old male with seropositive RA who returns for follow-up. He is on methotrexate 20 mg weekly and Enbrel weekly. States that he is doing quite well overall with no joint pain swelling or stiffness. Denies any recent illnesses. He has been trying to cut down and quit smoking. He smokes 1 cigar a day [facility] Medical History Smoker Alcohol abuse Ventral hernia Surgical History History of hydrocelectomy Family History Mother Hypertension Father No problems noted. Social History Household Members: Spouse Housing: House Are you a primary home care assistant to a significant other at home: No Do you presently have visiting nurse or other home services: No Alcohol intake: never Tobacco use type: Cigar e-Cigarette/Vaping Use: Never Used service: No Current occupational status: employed Current occupation: S[employer] Review of Systems Musc Denies arthralgias, Denies joint swelling and Denies stiffness Physical Exam Vital Signs: Last Vital Signs Pulse 97 07/03/24 08:32 BP 142/80 H 07/03/24 08:32 Pulse Ox 94 07/03/24 08:32 Oxygen Delivery Method Room Air 07/03/24 08:32 BMI result Body Mass Index 27.8 Const General: cooperative, healthy appearing and comfortable Nutritional Appearance: overweight Orientation/consciousness: patient oriented x3 Limitations: no limitations HEENT Head: Yes normocephalic and Yes atraumatic Mouth: moist mucous membranes Resp Effort & Inspection: normal respiratory effort and able to speak in complete sentences Auscultation: clear to auscultation bilaterally Cardio Rate: regular rate Rhythm: regular rhythm Skin General skin exam: no rashes or lesions noted Neuro General: patient oriented x3 Extrem Other: Osteoarthritic changes of both hands with no active synovitis Deformity i of right index DIP related to old trauma Assessment & Plan Assessment & Plan (1) Seropositive rheumatoid arthritis of multiple joints: Comment: Onset August,. RF and CCP positive Methotrexate started end of September 2016; Humira added at the end of January 2017 Humira held -02/23 - skin infection/trauma -not restarted but methotrexate continued Enbrel added 01/28 Code(s): M05.79 - Rheumatoid arthritis with rheumatoid factor of multiple sites without organ or systems involvement Category: Medical Plan: This is a 63-year-old male with seropositive RA who presents for follow-up. Doing quite well with no active synovitis on methotrexate 20 mg weekly, folic acid 1 mg daily and Enbrel weekly. Reduce methotrexate to 15 mg once weekly Continue other meds as prescribed Labs in 3 months and in 6 months before next visit (2) Long-term use of immunosuppressant medication: Code(s): Z79.899 - Other long term care administrator (current) drug therapy Category: Medical Plan: Monitor safety lab (3) Smoker: Code(s): F17.200 - Nicotine dependence, unspecified, uncomplicated Category: Social Hx Plan: Discussed long-term side effects of smoking including pulmonary and cardiovascular complications as well as increased risk of malignancy. Advised patient to quit Plan I spent 25 minutes reviewing patient's chart, evaluating patient, ordering diagnostic workup, counseling patient and documenting in the chart Orders: Orders Complete Blood Count Auto Diff 3 Months M05.79 - Rheumatoid arthritis with rheumatoid factor of multiple sites without organ or systems involvement, Z79.899 - Other long term care administrator (current) drug therapy C Reactive Protein 3 Months M05.79 - Rheumatoid arthritis with rheumatoid factor of multiple sites without organ or systems involvement, Z79.899 - Other long term care administrator (current) drug therapy Comprehensive Met. Panel 6 Months M05.79 - Rheumatoid arthritis with rheumatoid factor of multiple sites without organ or systems involvement, Z79.899 - Other l eryn term (current) drug therapy C Reactive Protein 6 Months M05.79 - Rheumatoid arthritis with rheumatoid factor of multiple sites without organ or systems involvement, Z79.899 - Other long term care administrator (current) drug therapy Erythrocyte Sedimentation Rate 6 Months M05.79 - Rheumatoid arthritis with rheumatoid factor of multiple sites without organ or systems involvement, Z79.899 - Other long term care administrator (current) drug therapy T Spot TB 3 Months Z11.7 - Encounter for testing for latent tuberculosis infection Comprehensive Met. Panel 3 Months M05.79 - Rheumatoid arthritis with rheumatoid factor of multiple sites without organ or systems involvement, Z79.899 - Other long term care administrator (current) drug therapy Erythrocyte Sedimentation Rate 3 Months M05.79 - Rheumatoid arthritis with rheumatoid factor of multiple sites without organ or systems involvement, Z79.899 - Other long term care administrator (current) drug therapy Complete Blood Count Auto Diff 6 Months M05.79 - Rheumatoid arthritis with rheumatoid factor of multiple sites without organ or systems involvement, Z79.899 - Other long term care administrator (current) drug therapy Hepatitis A,B,C Profile 3 Months Z11.59 - Encounter for screening for other viral diseases Medications: Changed From methotrexate sodium 20 mg (8 x 2.5 mg) PO QWEEK 96 tabs 0RF M05.9 - Rheumatoid arthritis with rheumatoid factor, unspecified To methotrexate sodium 15 mg (6 x 2.5 mg) PO QWEEK 96 tabs 0RF M05.9 - Rheumatoid arthritis with rheumatoid factor, unspecified Coding Level of Care Code Est Pt Level 4 (80904) Complex EM visit Add On G2211 Diagnoses Seropositive rheumatoid arthritis of multiple joints M05.79 Long-term use of immunosuppressant medication Z79. Smoker F17.200
[2024-07-03 08:32] VITALS: BP 142/80; PULSE 97; O2SAT 94; BMI 27.8
== END 2024-07-03 08:45 | disposition home or self-care (01) ==
PROVIDERS: PCP Internal Medicine; Visit Provider Student in an Organized Health Care Education/Training Program
DX: M05.79 Rheumatoid arthritis with rheumatoid factor of multiple sites without organ or systems involvement (principal); Z79.899 Other long term (current) drug therapy; F17.200 Nicotine dependence, unspecified, uncomplicated
CPT/HCPCS: 99214

== ENCOUNTER 2024-12-16 10:50 | Outpatient (REF) | payer OTHER, SELFPAY ==
--- OUTSIDE RECORDS SUMMARY | 2024-12-16 12:50 | XMS_ITS | Encounter Summary ---
Author Organization [facility] [place] [address] Care Team Providers Care Railroad Car Repairman Name Role Phone Randolph Estevez MD Primary Care Provider [phone] Reason for Visit * Reason Onset Date Comments Med Refill 11/17/2024 Encounter Details Date Type Department Care Team ([facility] Contact Info) Description [facility] [address] [phone] Soila Champagne MD [address] [address] Med Refill Social History Tobacco Use Types Packs/Day Years Used Date Smoking Tobacco: Every Day Cigarettes Last attempted to quit: 04/08/2019 Smokeless Tobacco: Never Alcohol Use Standard Drinks/Week Comments Yes 0 (1 standard drink = 0.6 oz pur e alcohol) Sex and Gender Information Value Date Recorded Sex Assigned at Male 12/03/2024 12:25 PM EDT Legal Sex Male 7:04 AM EST Gender Identity Not on file Sexual Orientation Not on file Travel History Travel Start Travel End [place] 11/15/2024 11/23/2024 documented as of this encounter Progress Notes * Leni Lazar MA - 11/17/2024 10:08 AM EDT Medication not listed on her med list * Kade Gonzalez - 11/17/2024 9:40 AM EDT Patient is seeking for refill for Ann stevenson, NOV - documented in this encounter Plan of Treatment Upcoming Encounters Date Type Department Care Team (Late st Contact Info) Description 12/19/2024 8:30 AM EDT Office Visit Pulmonology - [facility] [address] [facility] [address] [place] [phone] Radha Choe MD [address] [place] [address] 12/29/2024 8:30 AM EDT Office Visit Pulmonolgy - [place] [address] [facility] [address] [place] [phone] Soila Champagne MD 175 [facility] [address] [place] [address] documented as of this encounter Visit Diagnoses Not on filedocumented in this encounter Additional Health Concerns Infection Onset Date Last Indicated Resolved Time Tuberculosis Rule-Out 12/03/2024 12/03/2024 documented as of this encounter Care Teams Railroad Car Repairman Relationship Specialty Start Date End Date Randolph Estevez MD [address] [place] [address] PCP - General Family Medicine 10/23/24 documented as of this encounter
[2024-12-16 13:26] LABS: MANUAL DIFF FLAG NO
[2024-12-16 13:32] LABS: Basophils Absolute Auto 0.1 X10*3/uL (0.0-0.2); Basophils Percent Auto 0.6 % (0-2); Eosinophils Absolute Auto 0.1 X10*3/uL (0.0-0.4); Hematocrit 46.4 % (42.0-52.0); Imm Gran Abs Auto 0.03 X10*3/uL (0.00-0.03); Imm Gran Pct Auto 0.3 % (0.0-0.4); Lymphocytes Absolute Auto 2.3 X10*3/uL (1.2-4.9); Lymphocytes Percent Auto 22.8 % (20-40); Mean Corpuscular HGB Conc 32.3 g/dl (31.0-36.0); Mean Corpuscular Hemoglobin 30.1 pg (27.0-33.0); Mean Corpuscular Volume 93.2 fL (80.0-98.0); Mean Platelet Volume 11.2 fL (9.4-12.4); Monocytes Absolute Auto 0.5 X10*3/uL (0.1-1.2); Monocytes Percent Auto 5.4 % (2-11); Neutrophils Percent Auto 69.9 % (45-73); Platelet Count 234 X10*3/uL (160-400); Red Blood Count 4.98 X10*6/uL (4.60-5.80); Red Cell Distribution Width 14.9 % (11.0-16.0)
[2024-12-16 13:58] LABS: Alanine Aminotransferase 22 U/L (0-40); Albumin Level 4.7 g/dL (3.5-5.0); Alkaline Phosphatase 96 U/L (39-117); Anion Gap 13 (12-20); Aspartate Amino Transferase 27 U/L (5-37); Bilirubin Total 0.8 mg/dL (0.0-1.0); Blood Urea Nitrogen 12 mg/dL (9-16); Calcium 9.8 mg/dL (8.4-10.2); Carbon Dioxide 27 mmol/L (22-29); Chloride 105 mmol/L (96-108); Estimated Glomerular Filt Rate > 60; Glucose Random 105 mg/dL (60-115); Potassium 4.3 mmol/L (3.3-5.1); Sodium 141 mmol/L (135-145); Total Protein 7.3 g/dL (6.5-8.0)
[2024-12-16 14:16] LABS: Erythrocyte Sedimentation Rate 11 MM/HR (0-15)
== END 2024-12-16 10:51 | disposition home or self-care (01) ==
LOC: HO.HMGCLDS 10:50
PROVIDERS: Visit Provider Student in an Organized Health Care Education/Training Program
DX: M05.79 Rheumatoid arthritis with rheumatoid factor of multiple sites without organ or systems involvement (principal); Z79.899 Other long term (current) drug therapy
CPT/HCPCS: 36415; 80053; 85025; 85652; 86140

== ENCOUNTER 2025-01-01 08:25 | Outpatient (AMB) | payer OTHER, SELFPAY ==
--- NOTE | 2025-01-01 08:27 | MHC.OFFVIS ---
Vital Signs 01/01/25 08:32 Height 5 ft 8 in Weight 194 lb 7.163 oz BMI 29.6 BP 162/80 H Blood Pressure Location Lt brachial Position Sitting Pulse 88 Pulse Source Pulse Oximeter Pulse Oximetry (%) 99 Oxygen Delivery Method Room Air Intake Visit Reasons: RA Intake Note: Patient presents for RA follow up. Allergies No Known Allergies Allergy (Verified 01/01/25 08:31) HPI Comments Details: Patient is a 64 y.o. male current everyday smoker with COPD, thoracic aortic aneurysm and seropositive rheumatoid arthritis here today for follow up Interval History: Patient last seen 07/03/[address] Chase. At that time he was following up for his seropositive rheumatoid arthritis on etanercept 50 mg weekly and methotrexate 20 mg weekly. He reported he was doing well without any joint pain or stiffness. No active synovitis noted to examined so his methotrexate was decreased from 20 mg weekly to 15 mg weekly Today, With respect to his joint he does not have any new complaints Because of his smoking history he has been getting yearly low dose CT scans. 1 year ago it was noted that he had an abnormal scan with pulmonary nodules. 6 months later a repeat scan was done which showed progression of disease. He ultimately had bronchoscopy with biopsy. which showed evidence of organizing PNA Patient denies worsening SOB Has decreased his smoking to 1 cigar per week Rheumatologic History: Onset August,. RF and CCP positive Methotrexate started end of September 2016; Humira added at the end of January 2017 Humira held -02/23 - skin infection/trauma -not restarted but methotrexate continued Enbrel added 01/28 Current Rheumatology Medication(s): Humira 40mg SC weekly Methotrexate 15mg weekly Folic acid 1mg daily [facility] Medical History (Updated 07/03/24 @ 08:50 by Cassius Chase MD) Smoker Alcohol abuse Ventral hernia Surgical History History of hydrocelectomy Family History Mother Hypertension Father No problems noted. Social History Household Members: Spouse Housing: House Are you a primary nursing care partner to a significant other at home: No Do you presently have visiting nurse or other home services: No Alcohol intake: never Tobacco use type: Cigar e-Cigarette/Vaping Use: Never Used service: No Current occupational status: employed Current occupation: SELF EM[employer] Review of Systems Const Details: Review of Systems Constitutional: Denies fever, chills, weight loss ENT: Denies vision changes, eye pain or eye redness, dental caries, dry mouth GI: Denies nausea, vomiting, diarrhea, abdominal pain, change in BM Pulm: Denies SOB, TAYLOR, hemoptysis, wheezing Cards: Denies chest pain, palpitations Skin: Denies Raynaud's, rash, nail changes, photosensitivity, SHAKE BACKBOARD NOTCHER: Denies headaches, weakness, paresthesias, recurrent falls MSK: as per HPI All other systems reviewed and are unremarkable except noted above Physical Exam Vital Signs: Last Vital Signs Pulse 88 01/01/25 08:32 BP 162/80 H 01/01/25 08:32 Pulse Ox 99 01/01/25 08:32 Oxygen Delivery Method Room Air 01/01/25 08:32 BMI result Body Mass Index 29.6 Vital signs reviewed Physical Examination CONSTITUITIONAL Patient alert and cooperative. Well appearing and in no apparent painful distress HEENT Conjunctiva and sclera clear. No lymphadenopathy. CHEST/RESPIRATORY SYSTEM Normal respiratory effort and able to speak in complete sentences. Clear to auscultation bilaterally. No crackles, rales, rhonchi, wheezes heard. CARDIAC SYSTEM Regular rate and rhythm. S1 and S2 heard no murmurs. Radial pulses intact bilaterally MSK Hands Right Hand: Able to make a fist. No swelling or tenderness to palpation of these joints. Chronic flexion deformity of the 2nd PIP. Herbeden's nodes Left Hand: Able to make a fist. No swelling or tenderness to palpation of these joints. No deformities noted. Wrists Right Wrist: Decreased wrist extension. No swelling or TTP Left Wrist: Decreased wrist extension. No swelling or TTP Elbows Right Elbow: Full ROM. No swelling or TTP. No TTP of the medial and lateral epicondyles Left Elbow: Full ROM. No swelling or TTP. No TTP of the medial and lateral epicondyles Shoulders Right shoulder: Full ROM. No swelling noted. No TTP of the AC joint, subacromial bursa or posterior shoulder Left shoulder: Full ROM. No swelling noted. No TTP of the AC joint, subacromial bursa or posterior shoulder Knees Right knee: Full ROM. No swelling noted. No TTP of the knee joint lie or pes anserine bursa Left knee: Full ROM. No swelling noted. No TTP of the knee joint lie or pes anserine bursa. Crepitations felt bilaterally Ankles Right ankle: Good ankle dorsiflexion and plantar flexion. No swelling. No TTP of the ankle joint Left ankle: Good ankle dorsiflexion and plantar flexion. No swelling. No TTP of the ankle joint Feet Right foot: Negative squeeze test Left foot: Negative squeeze test Tender points? No tenderness to palpation of the bilateral trapezius, supraspinatus, anterior costochondral junctions, bilateral suboccipital muscle insertions SKIN No rashes Results Reviewed Results Reviewed: Laboratory Tests 05/20/24 12/16/24 10:15 10:54 WBC 8.8 10.0 RBC 4.32 L 4.98 Hgb 13.9 L 15.0 Hct 41.7 L 46.4 Plt Count 207 234 ESR 7 11 Sodium 139 141 Potassium 4.0 4.3 Chloride 106 105 Carbon Dioxide 27 27 BUN 13 12 Creatinine 0.81 0.95 Calcium 9.7 9.8 Total Bilirubin 0.8 0.8 AST 25 27 ALT 26 22 Alkaline Phosphatase 69 96 C-Reactive Protein 0.22 0.70 H Infectious serologies 01/11/23 08:34 TB Test (T-Spot) Com Negative CT Chest w/o contrast 10/2024 FINDINGS: Lung/pleura: The central airways are clear and normal in caliber. Mild centrilobular emphysema. Multiple small irregular bilateral pulmonary nodules have increased in size and number. These range up to 7 mm in diameter. Small amount of osteophyte associated scarring in the medial right lower lobe. No pleural effusion or pneumothorax Mediastinum/sandra: No mediastinal mass or lymphadenopathy. No appreciable hilar lymphadenopathy on limited noncontrast evaluation. Vasculature: Normal caliber pulmonary arteries. Mild atherosclerotic calcifications of the great vessels Cardiac: Normal heart size. Moderate coronary artery calcification. Chest wall: No axillary or supraclavicular lymphadenopathy Limited abdomen: Stable left adrenal adenoma Bones: Moderate degenerative changes of the spine IMPRESSION: Interval increase in size and number of multiple irregular subcentimeter pulmonary nodules. While it is possible that these are inflammatory, the interval progression raises concerns for metastatic disease. Lung-RADS 4a. Consider further evaluation with PET scan to suggest for site of primary neoplastic disease. The pulmonary nodules are small and may be below the resolution of a PET Pathology 11/2024 Lung, right upper lobe, cryo biopsy: New line benign lung tissue with chronic inflammation, fiber elastic scarring and overall features of organizing pneumonia. Negative for granulomas and malignancy Lung, left upper lobe, cryo biopsy: New line benign lung tissue with chronic inflammation, fiber elastic scarring and overall features of organizing pneumonia. Negative for granulomas and malignancy Assessment & Plan Assessment & Plan (1) Seropositive rheumatoid arthritis of multiple joints: Comment: Onset August,. RF and CCP positive Methotrexate started end of September 2016; Humira added at the end of January 2017 Humira held -02/23 - skin infection/trauma -not restarted but methotrexate continued Enbrel added 01/28 Code(s): M05.79 - Rheumatoid arthritis with rheumatoid factor of multiple sites without organ or systems involvement Category: Medical Plan: #Seropositive RA Patient is a 64 y.o male with seropositive RA here today for follow up. Currently undergoing work up for pulmonary nodules, with biopsy showing chronic inflammation and fibroeleastic scarring concerning for features of organizing PNA. This can definitely be associated with his underlying seropositive disease. I would have expected him to have some underlying disease activity and his exam today is without synovitis, however there have been some reports that organizing pneumonia can be present even in patient's with well controlled RA and on TNF inhibitors. I will reach out to the patient's aerophysicist to discuss the case. For now we will keep the Enbrel until his repeat CT scan in January. Steroids are usually a good treatment option and if steroid resistant/dependent we can consider alternative treatments Plan - Continue Enbrel 50mg SC weekly - Methotrexate 15mg weekly - Folic acid 1 mg daily - RTC February after pulm appt and rpt CT scan Sachin S, Pratibha Y, Aakash M. Organizing Pneumonia in Rheumatoid Arthritis Patients: A Case-Based Review. Clin Med Insights Circ Respir Pulm Med. 2015 May 04;9(Suppl 1):69-80. doi: 10.4137/CCR.G58557. PMID: 73404930; PMCID: [id number]. (2) Encounter for methotrexate monitoring: Code(s): Z51.81 - Encounter for therapeutic drug level monitoring; Z79.631 - terminal carman (current) use of antimetabolite agent Plan: #Long-term Current Use of Methotrexate Discussed with patient the benefits and risks of methotrexate for managing their rheumatic condition Benefits include reduced pain, reduced mortality, maintenance of remission and reduction of flares Risks include oral ulcers, photosensitivity, hepatotoxicity, hematologic toxicity, pneumonitis, flu-like symptoms (especially day after administration), nodulosis, lymphomas ? Limit alcohol and avoid Bactrim ? Monitoring: CBC, BMP, LFTs every 3-4 months and hepatitis serologies as needed (3) Encounter for monitoring of adalimumab therapy: Code(s): Z51.81 - Encounter for therapeutic drug level monitoring; Z79.620 - care home (current) use of immunosuppressive biologic Plan: #Long-term Use of TNF Inhibitors: Humira Discussed with the patient the benefits and risks of TNF inhibitors for the management of the rheumatic condition Benefits include reduce pain, maintenance of remission and reduction of flares as well as progression of the disease Risks include injection sites/infusion reactions, serious infections (such as bacterial infections, opportunistic infections), malignancy, delaminating syndromes, autoimmune phenomena, CHF exacerbations, palmar plantar psoriasis and cytopenias Recommended rotating injection sites, and holding medication during and for up to 1 week after resolution of a febrile illness or open skin wound Plan I spent 40 minutes reviewing the record and labs, taking a history, examining the patient, discussing the treatment plan, discussing case with pulm and documenting in the medical record Coding Level of Care Code Est Pt Level 4 (64963) Complex EM visit Add On G2211 Diagnoses Seropositive rheumatoid arthritis of multiple joints M05.79 Encounter for methotrexate monitoring Z51.81; Z79.631 Encounter for monitoring of adalimumab therapy Z51.81; Z79.620
[2025-01-01 08:32] VITALS: BP 162/80; PULSE 88; O2SAT 99; BMI 29.6
--- OUTSIDE RECORDS SUMMARY | 2025-01-01 08:42 | XMS_ITS ---
Author Name [facility] Organization Unknown Results Test Name/Text Value Interpretation Date Range Source Citation Ref Lab Test The technical components of this case were performed at [address] [address] CLIA # [id number] 12/05/2024 [facility] Citation Ref Lab Test The technical components of this case were performed at [address] [address] CLIA # [id number] 12/05/2024 [facility] Clinical Information IN CYTO 12/05/2024 [facility] History of Medication Use Medication Directions Dispensed Refills Start Date End Date Stat ipratropium-albutero L (DUONEB) 0.5-2.5 mg/3 mL nebulizer solution 3 mL 3 mL, nebulization, Once as needed, wheezing, Starting on Sun12/03/24 at 1946, For 1 dose, Recovery (only) 12/03/2024 completed acetaminophen (TYLENOL) tablet 650 mg 650 mg, oral, Once as needed, mild pain, pain (1-3), Starting on Sun12/03/24 at 1946, For 1 dose, Recovery (only), pain (1-3) 12/03/2024 active dexAMETHasone (DECADRON) injection 4 mg 4 mg, intravenous, Once as needed, nausea and vomitting, Starting on Sun12/03/24 at 1946, For 1 dose, Recovery (only), Administer 2nd unless given in OR 12/03/2024 active diphenhydrAMINE (BENADRYL) injection 12.5 mg 12.5 mg, intravenous, Once as needed, itching, nausea, vomiting, Starting on Sun12/03/24 at 1946, For 1 dose, Recovery (only) 12/03/2024 active HYDROmorphone (DILAUDID) injection 0.2 mg 0.2 mg, intravenous, Every 15 min PRN, moderate pain, Starting on Sun12/03/24 at 1946, For 4 doses, Recovery (only), For pain (4-6). DO NOT EXCEED 2MG 12/03/2024 active HYDROmorphone (DILAUDID) injection 0.5 mg 0.5 mg, intravenous, Every 15 min PRN, severe pain, Starting on Sun12/03/24 at 1946, For 4 doses, Recovery (only), For pain (7-10). 12/03/2024 active meperidine (PF) (DEMEROL) 25 mg/mL injection 12.5 mg 12.5 mg, intravenous, Every 30 min PRN, shivering, Starting on Sun12/03/24 at 194, For 2 doses, Recovery (only), Infuse over 5 minutes. 12/03/2024 active ondansetron (PF) (ZOFRAN) injection 4 mg 4 mg, intravenous, Once as needed, nausea, vomiting, Starting on Sun12/03/24 at 1946, For 1 dose, Recovery (only), Infuse over 2 minutes. Administer 1st unless given in OR then give dexamethasone 12/03/2024 active orphenadrine (NORFLEX) injection 30 mg 30 mg, intravenous, Once as needed, muscle spasms, Starting on Sun12/03/24 at 1946, For 1 dose, Recovery (only) 12/03/2024 active oxyCODONE (ROXICODONE) immediate release tablet 5 mg 5 mg, oral, Every 4 hours PRN, moderate pain, severe pain, for pain 4-6, Starting on Sun12/03/24 at 1946, For 2 doses, Recovery (only) 12/03/2024 active sodium chloride 0.9 % flush 10 mL [Order 1 Start] Name: Insert peripheral IV Signed Summary: STAT, Once, On Sun12/03/24 at 1330, For 1 occurrence, Preprocedure [Order 1 End] [Order 2 Start] Name: Maintain IV access Signed Summary: Until discontinued, Starting on Sun12/03/24 at 1330, Until Specified, Preprocedure [Order 2 End] [Order 12/03/2024 active Trelegy Ellipta 100-62.5-25 mcg inhaler USE 1 INHALATION DAILY 11/25/2024 active etanercept (EnbreL SureClick) 50 mg/mL (1 mL) injection pen 1 (one) time per week. Sunday10/30/2023 active albuterol HFA (PROAIR HFA ; PROVENTIL HFA ; VENTOLIN HFA) 90 mcg/actuation inhaler USE 2 INHALATIONS EVERY 4 HOURS NEEDED FOR WHEEZING OR SHORTNESS OF BREATH FOR UP TO 90 DAYS 05/07/2023 active umeclidinium-vilante roL (Anoro Ellipta) 62.5-25 mcg/actuation inhaler Inhale 62.5 mcg into the lungs daily. 04/10/2022 aborted methotrexate 2.5 mg tablet 1 (one) time per week Fridays05/18/2021 active folic acid (FOLVITE) 1 mg tablet Take 1 tablet by mouth daily. 04/25/2021 active omega-3 acid ethyl esters (LOVAZA) 1 gram capsule Take by mouth daily. active UNABLE TO FIND Med Name: OTC prostate supplement active Problems Problem Status Onset Date Problem Type Date of Resolution Source Ventral hernia active 2011-07-27 ProblemAct [facility] Pain active EncounterDiagnosisAct [facility] Seropositive rheumatoid arthritis of multiple sites ([facility] V24, [facility] V28) active 2016-09-25 ProblemAct [facility] Cigarette smoker active 2016-09-06 ProblemAct C [facility] Chronic obstructive pulmonary disease ([facility] V24, [facility] V28) active 2016-11-10 ProblemAct [facility] Aneurysm of thoracic aorta ([facility] V24) active 2016-12-07 ProblemAct [facility] Pulmonary nodules active 2017-12-05 ProblemAct [facility] Mucus plugging of bronchi active 2019-06-20 ProblemAct [facility] Hydrocele active 2011-07-27 ProblemAct [facility] Immunizations Vaccine Date Source Lot Number Status Influenza Quadravalent, MDCK , 0.5ml, preservative free (Flucelvax) 6mo and older 05/03/2021 [facility] [id number] completed Influenza Quadravalent, MDCK , 0.5ml, preservative free (Flucelvax) 6mo and older 04/29/2020 [facility] [id number] completed Influenza Quadravalent, MDCK , 0.5ml, with preservative (Flucelvax) 6mo and older 04/09/2018 [facility] [id number] completed Influenza Quadravalent, MDCK , 0.5ml, with preservative (Flucelvax) 6mo and older 05/11/2017 [facility] [id number] completed Pneumococcal polysaccharide 23 valent (Pneumovax 23) 2yo and older 01/10/2017 [facility] [id number] com pleted Influenza trivalent, 0.5mL, preservative free (Fluarix; FluLaval; Fluzone) ages 6mo and older (Afluria) 3 years and older 07/27/2011 [id number] completed Tdap Tetanus diptheria acell ular pertussis (Boostrix; Adacel) 7yo and older 07/27/2011 [facility] [id number] completed Encounters Encounter Type Encounter Reason Primary Diagnosis Location Date Ambulatory Pain, unspecified Pain, unspecified [facility] 12/03/2024 Ambulatory Solitary pulmonary nodule Solitary pulmonary nodule [facility] 12/03/2024 Care Team Organization Name Specialty Phone Email Start Date End Da te [facility] 11/27/2024 [facility] 11/27/2024
== END 2025-01-01 09:03 | disposition home or self-care (01) ==
PROVIDERS: PCP Internal Medicine; Visit Provider Student in an Organized Health Care Education/Training Program
DX: M05.79 Rheumatoid arthritis with rheumatoid factor of multiple sites without organ or systems involvement (principal); Z51.81 Encounter for therapeutic drug level monitoring; Z79.631 Long term (current) use of antimetabolite agent; Z79.620 Long term (current) use of immunosuppressive biologic
CPT/HCPCS: 99214

== ENCOUNTER 2025-02-20 07:40 | Outpatient (AMB) | payer OTHER, SELFPAY ==
--- OUTSIDE RECORDS SUMMARY | 2025-02-20 07:43 | XMS_ITS ---
Author Name [facility] Organization Unknown Results Test Name/Text Value Interpretation Date Range Source Citation Ref Lab Test The technical components of this case were performed at [address] [address] CLIA # [id number] 12/05/2024 [facility] Citation Ref Lab Test The technical components of this case were performed at [address] [address] CLIA # [id number] 12/05/2024 [facility] Clinical Information IN CYTO 12/05/2024 [...] Date Problem Type Date of Resolution Source Aneurysm of thoracic aorta ([facility] V24) active 2016-12-07 ProblemAct [facility] Mucus plugging of bronchi active 2019-06-20 ProblemAct [facility] Hydrocele active 2011-07-27 ProblemAct [facility] Chronic obstructive pulmonary disease ([facility] V24, [facility] V28) active 2016-11-10 ProblemAct [facility] Pulmonary nodules active 2017-12-05 ProblemAct [facility] Cigarette smoker active 2016-09-06 ProblemAct C [facility] Pain active EncounterDiagnosisAct [facility] Ventral hernia active 2011-07-27 ProblemAct [facility] Seropositive rheumatoid arthritis of multiple sites ([facility] V24, [facility] V28) active 2016-09-25 ProblemAct [facility] Immunizations Vaccine Date Source Lot Number Status Influenza Quadravalent, MDCK , 0.5ml, preservative free (Flucelvax) 6mo and older 05/03/2021 [facility] [id number] completed Influenza Quadravalent, MDCK , 0.5ml, preservative free (Flucelvax) 6mo and older 04/29/2020 [facility] [id number] completed Influenza Quadravalent, MDCK , 0.5ml, with preservative (Flucelvax) 6mo and older 04/09/2018 [facility] [id number] completed Influenza Quadravalent, MDCK , 0.5ml, with preservative (Flucelvax) 6mo and older 05/11/2017 [facility] [id number] completed Pneumococcal polysaccharide 23 valent (Pneumovax 23) 2yo and older 01/10/2017 [facility] [id number] com pleted Influenza trivalent, 0.5mL, preservative free (Fluarix; FluLaval; Fluzone) ages 6mo and older (Afluria) 3 years and older 07/27/2011 [facility] [id number] completed Tdap Tetanus diptheria acell ular pertussis (Boostrix; Adacel) 7yo and older 07/27/2011 [facility] [id number] completed Encounters Encounter Type Encounter Reason Primary Diagnosis Location Date Ambulatory Pain, unspecified Pain, unspecified [facility] 12/03/2024 Ambulatory Solitary pulmonary nodule Solitary pulmonary nodule [facility] 12/03/2024 Care Team Organization Name Specialty Phone Email Start Date End Da te [facility] 11/27/2024 [facility] 11/27/2024 [facility] 05/16/2022 02/25/2024
--- OUTSIDE RECORDS SUMMARY | 2025-02-20 07:43 | XMS_ITS | Clinical Summary ---
Author Organization [facility] Address [address] [place] [address] Phone Care Team Providers Care Photographer Finish Name Role Phone Randolph Estevez MD Primary Care Provider [phone] Allergies No known active allergies Medications etanercept (EnbreL SureClick) 50 mg/mL (1 mL) injection pen 1 (one) time per week. Sunday 4 Active albuterol HFA (PROAIR HFA ; PROVENTIL HFA ; VENTOLIN HFA) 90 mcg/actuation inhaler USE 2 INHALATIONS EVERY 4 HOURS NEEDED FOR WHEEZING OR SHORTNESS OF BREATH FOR UP TO 90 DAYS 3 Active methotrexate 2.5 mg tablet 1 (one) time per week Fridays 1 Active folic acid (FOLVITE) 1 mg tablet Take 1 tablet by mouth daily. 1 Active TURMERIC ORAL Take by mouth daily. Active omega-3 acid ethyl esters (LOVAZA) 1 gram capsule Take by mouth daily. Active Trelegy Ellipta 100-62.5-25 mcg inhaler USE 1 INHALATION DAILY 180 each 3 5 Active UNABLE TO FIND Med Name: OTC prostate supplement Active Active Problems Problem Noted Date Diagnosed Date Mucus plugging of bronchi 06/20/2019 Pulmonary nodules 12/05/2017 Overview (07/03/2024): follows with pulmonology Aneurysm of thoracic aorta (CMS/HCC V24) 017 Overview (07/03/2024): 4.1 cm, on lung cancer screening 2016, follows with CT surgery, Dr. Gale , per pt, yeatrly follow up Chronic obstructive pulmonar y disease ([facility] V24, [facility] V28) 11/10/2016 Seropositive rheumatoid arth ritis of multiple sites ([facility] V24, [facility] V28) 09/25/2016 Overview (07/03/2024): Onset August,. RF and CCP positive Methotrexate started end of September 2016; Humira added at the end of January 2017 Humira held -02/23 - skin infection/trauma -not restarted but methotrexate continued Cigarette smoker 09/06/2016 Hydrocele 07/27/2011 Ventral hernia 07/27/2011 Overview (07/03/2024): IMO update Encounters Date Type Department Care Team Description 02/13/2025 3:00 PM EDT Office Visit Pulmonology - [facility] [address] [facility] [address] [place] [phone] Radha Choe MD Pulmonary nodules (Primary Dx); Seropositive rheumatoid arthritis of multiple sites ([facility] V24, [facility] V28); Chronic obstructive pulmonary disease, unspecified COPD type ([facility] V24, [facility] V28); Organizing pneumonia ([facility] V24, [facility] V28) 02/12/2025 Telephone Pulmonology - [place] [address] [facility] [address] [place] [phone] 02/03/2025 7:48 AM EDT - 02/03/2025 11:59 PM EDT Hospital Encounter [facility] CT Scan [address] [place] [phone] Lung nodule; Pulmonary nodules; Organizing pneumonia ([facility] V24, [facility] V28) Discharge Disposition: Home or Self Care 12/29/2024 8:30 AM EDT Office Visit Pulmonolgy - [facility] [address] [facility] [address] [place] [phone] Soila Champagne MD Chronic obstructive pulmonary disease, unspecified COPD type ([facility] V24, [facility] V28) (Primary Dx); Pulmonary nodules; Seropositive rheumatoid arthritis of multiple sites ([facility] V24, [facility] V28) 12/19/2024 8:30 AM EDT Office Visit Pulmonology - [address] [phone] Radha Choe MD Lung nodule (Primary Dx); Pulmonary nodules; Organizing pneumonia ([facility] V24, [facility] V28) 12/03/2024 6:10 PM EDT Anesthesia Event [facility] [place] [address] [place] [phone] Ashli Kate MD Ham, Jae H, DO 12/03/2024 5:55 PM EDT - 12/03/2024 8:20 PM EDT Surgery [facility] OR [address] [place] [phone] Radha Choe MD ROBOTIC ASSISTED BRONCHOSCOPY W. FNA, TBBX, BAL [20424 (CPT )] 12/03/2024 12:50 PM EDT - 12/03/2024 11:59 PM EDT [facility] [address] [place] [phone] Pain Discharge Disposition: Home or Self Care 12/03/2024 12:25 PM EDT - 12/03/2024 8:45 PM EDT Hospital Encounter [address] [phone] Radha Choe MD Lung nodule Discharge Disposition: Home or Self Care 12/02/2024 Telephone Thoracic Surgery - [place] [address] [phone] Shante Cortés [place] prior auth from Last 3 Months Immunizations Name Administration Dates Next Due Influenza Quadravalent, MDCK , 0.5ml, preservative free (Flucelvax) 6mo and older 05/03/2021,04/29/2020 Influenza Quadravalent, MDCK , 0.5ml, with preservative (Flucelvax) 6mo and older 04/09/2018,05/11/2017 Influenza trivalent, 0.5mL, preservative free (Fluarix; FluLaval; Fluzone) ages 6mo and older (Afluria) 3 years and older 07/27/2011 Pneumococcal polysaccharide 23 valent (Pneumovax 23) 2yo and older 01/10/2017 Tdap Tetanus diptheria acell ular pertussis (Boostrix; Adacel) 7yo and older 07/27/2011 Surgical History Surgery Date Site/Laterality Comments OTHER SURGICAL HISTORY PROCEDURE: OK EXC HYDROCELE SPRMATIC CORD UNI SPX Medical History Medical History Date Comments Hydrocele 07/27/2011 DX:Hydrocele Ventral hernia, unspecified, without mention of obstruction or gangrene 07/27/2011 DX:Ventral hernia, unspecified, without mention of obstruction or gangrene Thoracic aneurysm without me ntion of rupture 12/07/2016 DX:Thoracic aneurysm without mention of rupture; COMMENT: 4.1 cm, on lung cancer screening 2016 Alcohol use 09/06/2016 DX:Alcohol use; COMMENT: About 10-12 beers per week now. Aneurysm of thoracic aorta ( CMS/HCC V24) 12/07/2016 DX:Aneurysm of thoracic aort a (HCC); COMMENT: 4.1 cm, on lung cancer screening 2016, follows with vascular , per pt, yeatrly follow up Pulmonary nodules 12/05/2017 DX:Pulmonary n odules; COMMENT: folows with pulmonology Family History Medical History Relation Name Comments Diabetes Brother Hypertension Father Hypertension Mother Relation Name Status Comments Brother Father Mother Social History Tobacco Use Types Packs/Day Years Used Date Smoking Tobacco: Some Days Cigarettes Last attempted to quit: 04/08/2019 Smokeless Tobacco: Never Tobacco Cessation:Ready to Q uit: Not Asked; Counseling Given: Not Answered Comments:1-2 x per week - black and mild type cigarette Alcohol Use Standard Drinks/Week Comments Yes 0 (1 standard drink = 0.6 oz pur e alcohol) occasional Sex and Gender Information Value Date Recorded Sex Assigned at Male 12/03/2024 12:25 PM EDT Legal Sex Male 7:04 AM EST Gender Identity Male 12/22/2024 3:32 PM EDT Sexual Orientation Straight 12/22/2024 3: 32 PM EDT Obstetrics History Last Filed Vital Signs Vital Sign Reading Time Taken Comments Blood Pressure 155/87 02/13/2025 3:03 PM EDT Pulse 97 02/13/2025 3:03 PM EDT Temperature 37 C (98.6 F) 02/13/2025 3:03 PM EDT Respiratory Rate 20 12/29/2024 8:28 AM EDT Oxygen Saturation 95% 02/13/2025 3:03 PM EDT Inhaled Oxygen Concentration - - Weight 88 kg (194 lb 1.6 oz) 02/13/2025 3:03 PM EDT Height 172.7 cm (5' 8 ) 02/13/2025 3:03 PM EDT Body Mass Index 29.51 02/13/2025 3:03 PM EDT Plan of Treatment Upcoming Encounters Date Type Department Care Team (Late st Contact Info) Description 12/29/2025 8:15 AM EDT Office Visit Pulmonolgy - [place] [address] [facility] [address] [place] [phone] Soila Champagne MD [address] [facility] [address] [place] [address] Health Maintenance Due Date Last Done Comments Zoster Vaccines (1 of 2) 01/03/2008 COVID-19 Vaccine (3 - Pfizer risk series) 11/05/2020 10/08/2020, 09/17/2020 DTaP,Tdap,and Td Vaccines (2 - Td or Tdap) 07/27/2021 07/27/2011 Abdominal Aortic Aneurysm (AAA) Screen 06/13/2022 Cholesterol Screening (Lipid Panel) 06/13/2022 01/29/2017 Colorectal Cancer Screening: Stool Based Tests (FOBT/FIT) 06/13/2022 Social Influencers of Health Screening 06/13/2022 Depression Screening 07/09/2024 Lung Cancer Screening (Low Dose CT) 02/28/2025 02/29/2024, 02/02/2023, 01/31/2022, Additional history exists Influenza Vaccine (#1) 2025 , 05/23/2022, 05/03/2021, Additional history exists Falls Risk Assessment 12/03/2025 12/03/2024 Hepatitis C Screening Completed 09/22/2016 Pneumococcal Vaccine: 50+ Years Completed 09/10/2023, 03/09/2019, 01/10/2017 RSV Immunization Adult Patients Completed 10/14/2023 HIB Vaccines Aged Out No longer eligi ble based on patient's age to complete this topic HPV Vaccines Aged Out No longer eligi ble based on patient's age to complete this topic Hepatitis A Vaccines Aged Out No long er eligible based on patient's age to complete this topic Hepatitis B Vaccines Aged Out No long er eligible based on patient's age to complete this topic IPV Vaccines Aged Out No longer eligi ble based on patient's age to complete this topic MMR Vaccines Aged Out No longer eligi ble based on patient's age to complete this topic Meningococcal ACWY Vaccine Aged Out N o longer eligible based on patient's age to complete this topic Meningococcal B Vaccine Aged Out No l onger eligible based on patient's age to complete this topic RSV Immunization Patients Under 20 months Aged Out No longer eligible based on patient's age to complete this topic Varicella Vaccines Aged Out No longer eligible based on patient's age to complete this topic Procedures Procedure Name Priority Date/Time Associated Diagnosis Comments CT CHEST WO CONTRAST Routine 02/03/2025 7:57 AM EDT Lung nodule Pulmonary nodules Organizing pneumonia ([facility] V24, [facility] V28) XR CHEST 1 VIEW STAT 12/03/2024 8:24 PM EDT OXYGEN THERAPY, ADULT Routine 12/03/2024 7:47 PM EDT OXYGEN THERAPY, ADULT Routine 12/03/2024 7:47 PM EDT XR FLUORO UP TO 1 HOUR (STATISTICS)(NO REPORT) Routine 12/03/2024 7:21 PM EDT Pain CULTURE RESPIRATORY WITH GRAM STAIN Routine 12/03/2024 7:13 PM EDT Lung nodule CULTURE AFB AND SMEAR Routine 12/03/2024 7:13 PM EDT Lung nodule CULTURE FUNGUS, MISCELLANEOUS SOURCE Routine 12/03/2024 7:13 PM EDT Lung nodule TISSUE EXAM Routine 12/03/2024 6:44 PM EDT Lung nodule NON-GYNECOLOGIC CYTOLOGY Routine 12/03/2024 6:34 PM EDT Lung nodule TH AN ENDOTRACHEAL(NO CHARGE) Routine 12/03/2024 6:23 PM EDT CULTURE RESPIRATORY WITH GRAM STAIN Routine 12/03/2024 6:21 PM EDT Lung nodule CULTURE AFB AND SMEAR Routine 12/03/2024 6:21 PM EDT Lung nodule CULTURE FUNGUS, MISCELLANEOUS SOURCE Routine 12/03/2024 6:21 PM EDT Lung nodule OK BRONCHOSCOPY RIGID/FLEXIBLE W/EBUS >=3 MEDIASTINAL/HILAR LYMPH NODES 12/03/2024 5:49 PM EDT Lung nodule Special Needs 11/18/24- can we move Suresh Laureano back over to the at 215 PM - didn't realize Dr Oakes wasn't going to be here on December 10. Raul11/18/24- Suresh Laureano on December 03 can we move him to December 10 at 1015 AM instead please. Raul [place] BRONCHOSCOPY RIGID/FLEXIBLE W/TRANSBRONCHIAL LUNG BIOPSY(S) SINGLE LOBE 12/03/2024 5:49 PM EDT Lung nodule Special Needs 11/18/24- can we move Suresh Jacksofia back over to the at 215 PM - didn't realize Dr Oakes wasn't going to be here on December 10. Raul11/18/24- Suresh Laureano on December 03 can we move him to December 10 at 1015 AM instead please. Raul OK BRONCHOSCOPY RIGID/FLEXIBLE COMPUTER ASSISTED IMAGE GUIDED NAVIGATION 12/03/2024 5:49 PM EDT Lung nodule Special Needs 11/18/24- can we move Suresh Laureano back over to the at 215 PM - didn't realize Dr Oakes wasn't going to be here on December 10. Raul11/18/24- Suresh Laureano on December 03 can we move him to December 10 at 1015 AM instead please. Raul ECG 12-LEAD Routine 11/26/2024 8:23 AM EDT Pulmonary nodules Lung nodule CBC WITH AUTO DIFFERENTIAL Routine 11/26/2024 8:13 AM EDT Pulmonary nodules Lung nodule PROTHROMBIN TIME WITH INR Routine 11/26/2024 8:13 AM EDT Pulmonary nodules Lung nodule BASIC METABOLIC PANEL Routine 11/26/2024 8:13 AM EDT Pulmonary nodules Lung nodule CBC AND DIFFERENTIAL Routine 11/26/2024 8:13 AM EDT Pulmonary nodules Lung nodule CT LUNG SCREENING LOW DOSE Routine 02/29/2024 10:05 AM EDT Personal history of nicotine dependence LIPID PANEL Routine 01/29/2017 HM HEPATITIS C SCREENING Routine 09/22/2016 from Last 3 Months or Most Recently Relevant to Health Maintenance Results * CT Chest wo Contrast (02/03/2025 7:57 AM EDT) Anatomical Region Laterality Modality Body Computed Tomogra phy 02/06/2025 4:53 PM EDT Impressions 02/06/2025 5:14 PM EDT There are numerous irregular scattered pulmonary nodules. There were multiple nodules on the most recent previous. There has been overall increase in size and number. These could be related to vasculitis such as rheumatoid but are not specific. -------- FINAL REPORT -------- Dictated By: Pablo Alatorre Dictated Date: 02/06/2025 16:53 ET Assigned Physician: Pablo Alatorre Reviewed and Electronically Signed By: Pablo Alatorre Signed Date: 02/06/2025 17:14 ET Workstation ID: [id number] Transcribed By: Self Edit Transcribed Date: 02/06/2025 16:53 ET Narrative 02/06/2025 5:14 PM EDT EXAMINATION: CT CHEST WITHOUT CONTRAST CLINICAL INFORMATION: Lung nodule. Interval increase in size and number of multiple irregular subcentimeter pulmonary nodules. The patient has rheumatoid arthritis. Biopsies have yielded organizing pneumonia. COMPARISON: 10/21/24 TECHNIQUE: Multidetector CT. Examination of the chest. Examination of the chest without IV contrast. Reformatting in the coronal and sagittal planes. DLP: 902 mGy-cm Dose optimization was performed including the use of low-dose iterative reconstruction technique with automatic exposure control based on patient size. Type of contrast: None Volume of IV contrast: None Volume of contrast discarded: 0 mL FINDINGS: LUNG: No suspicious abnormality of the trachea or mainstem bronchi. There is centrilobular emphysema. There are numerous bilateral scattered irregular pulmonary nodules. Some of these are centered around the bronchovascular structures (central left lung ) These are too numerous to individually quantify and characterize. Irregular solid nodule central aspect right upper lobe 02/03/25-0.8 cm () 10/21/24-not measurable 08/13/24-not measurable 02/01/23-not measurable Irregular solid nodule anterolateral right lower lobe 02/03/25-0.8 cm () 10/21/24-not measurable 08/13/24-not measurable 02/01/23-not measurable Irregular solid nodule anteromedial left upper lobe 02/03/25-0.7 cm () 10/21/24-0.4 cm () 08/13/24-0.3 cm () 02/01/23-not measurable Irregular solid nodule posterior aspect left lower lobe 02/03/25-0.7 cm (165) 10/21/24-0.9 cm () 08/13/24-0.5 cm 02/01/23-not measurable An irregular nodule in the central aspect the left upper lobe has either developed some cavitation or surrounds small airways () Overall I suspect slight interval increase in size and number of most of the nodules. There is no convincing lower lung zone predominance. There is at least moderately severe underlying centrilobular emphysema. There are some reticular opacities but there is no honeycomb formation. There is some distortion of the fissures. No significant groundglass component. MEDIASTINUM: There are no enlarged mediastinal or hilar lymph nodes. No suspicious abnormality of the esophagus CARDIAC: The heart is not enlarged. No pericardial fluid or thickening CORONARY CALCIFICATION: There are marked coronary calcifications. VASCULAR: No thoracic aortic aneurysm. The central pulmonary arteries are prominent. PLEURA: There is no pleural fluid or pneumothorax AXILLA/CHEST WALL: There are no enlarged axillary lymph nodes. No chest wall mass demonstrated VISUALIZED UPPER ABDOMEN: There are a few tiny circumscribed low attenuating liver lesions which may represent cysts. There is no splenomegaly suggested. There are low attenuating nodular enlargement of the adrenal glands. These are not significantly changed. MUSCULOSKELETAL: No suspicious focal bony lesion. Procedure Note Pablo Alatorre MD - 02/06/2025 EXAMINATION: CT CHEST WITHOUT CONTRAST CLINICAL INFORMATION: Lung nodule. Interval increase in size and number of multiple irregularsubcentimeter pulmonary nodules. The patient has rheumatoid arthritis.Biopsies have yielded organizing pneumonia. COMPARISON: 10/21/24 TECHNIQUE: Multidetector CT. Examination of the chest. Examination of the chest without IV contrast. Reformatting in the coronal and sagittal planes. DLP: 902 mGy-cm Dose optimization was performed including the use of low-dose iterativereconstruction technique with automatic exposure control based on patientsize. Type of contrast: None Volume of IV contrast: None Volume of contrast discarded: 0 mL FINDINGS: LUNG: No suspicious abnormality of the trachea or mainstem bronchi. Thereis centrilobular emphysema. There are numerous bilateral scatteredirregular pulmonary nodules. Some of these are centered around thebronchovascular structures (central left lung ) These are too numerous to individually quantify and characterize. Irregular solid nodule central aspect right upper lobe 02/03/25-0.8 cm () 10/21/24-not measurable 08/13/24-not measurable 02/01/23-not measurable Irregular solid nodule anterolateral right lower lobe 02/03/25-0.8 cm () 10/21/24-not measurable 08/13/24-not measurable 02/01/23-not measurable Irregular solid nodule anteromedial left upper lobe 02/03/25-0.7 cm () 10/21/24-0.4 cm () 08/13/24-0.3 cm () 02/01/23-not measurable Irregular solid nodule posterior aspect left lower lobe 02/03/25-0.7 cm (4/165) 10/21/24-0.9 cm (3/163) 08/13/24-0.5 cm 02/01/23-not measurable An irregular nodule in the central aspect the left upper lobe has eitherdeveloped some cavitation or surrounds small airways (4/111) Overall I suspect slight interval increase in size and number of most ofthe nodules. There is no convincing lower lung zone predominance. There is at least moderately severe underlying centrilobular emphysema. There are some reticular opacities but there is no honeycomb formation.There is some distortion of the fissures. No significant groundglass component. MEDIASTINUM: There are no enlarged mediastinal or hilar lymph nodes. Nosuspicious abnormality of the esophagus CARDIAC: The heart is not enlarged. No pericardial fluid or thickening CORONARY CALCIFICATION: There are marked coronary calcifications. VASCULAR: No thoracic aortic aneurysm. The central pulmonary arteries areprominent. PLEURA: There is no pleural fluid or pneumothorax AXILLA/CHEST WALL: There are no enlarged axillary lymph nodes. No chestwall mass demonstrated VISUALIZED UPPER ABDOMEN: There are a few tiny circumscribed lowattenuating liver lesions which may represent cysts. There is nosplenomegaly suggested. There are low attenuating nodular enlargement ofthe adrenal glands. These are not significantly changed. MUSCULOSKELETAL: No suspicious focal bony lesion. IMPRESSION: There are numerous irregular scattered pulmonary nodules. There weremultiple nodules on the most recent previous. There has been overallincrease in size and number. These could be related to vasculitis such asrheumatoid but are not specific. -------- FINAL REPORT -------- Dictated By: Pablo Alatorre Dictated Date: 02/06/2025 16:53 ET Assigned Physician: Pablo Alatorre Reviewed and Electronically Signed By: Pablo Alatorre Signed Date: 02/06/2025 17:14 ET Workstation ID: [id number] Transcribed By: Self Edit Transcribed Date: 02/06/2025 16:53 ET us Radha Choe MD IMG CT PROCEDURES Final Re sult * XR Chest 1 View (12/03/2024 8:24 PM EDT) Anatomical Region Laterality Modality Body Radiographic Sunita ging 12/03/2024 9:16 PM EDT Impressions 12/03/2024 9:17 PM EDT 1. No acute process in the chest. 2. Aortic atherosclerosis. Report reviewed and signed by : Dr. Chavez Prasad on 12/03/2024 9:17 PM. Workstation Name - [id number] -------- FINAL REPORT -------- Dictated By: Chavez Prasad Dictated Date: 12/03/2024 21:16 ET Assigned Physician: Chavez Prasad Reviewed and Electronically Signed By: Chavez Prasad Signed Date: 12/03/2024 21:17 ET Workstation ID: [id number] Transcribed By: Self Edit Transcribed Date: 12/03/2024 21:16 ET Narrative 12/03/2024 9:17 PM EDT RADIOGRAPH OF THE CHEST CLINICAL HISTORY: postoperative care TECHNIQUE: Frontal view of the chest. COMPARISON: None. FINDINGS: Normal sized heart. Aortic atherosclerosis. No consolidation. No effusion. Negative for pneumothorax. Negative for acute osseous abnormality, lytic or blastic lesion. Procedure Note Chvaez Prasad MD - 12/03/2024 RADIOGRAPH OF THE CHEST CLINICAL HISTORY: postoperative care TECHNIQUE: Frontal view of the chest. COMPARISON: None. FINDINGS: Normal sized heart. Aortic atherosclerosis. No consolidation. No effusion. Negative for pneumothorax. Negative for acute osseous abnormality, lytic or blastic lesion. IMPRESSION: 1. No acute process in the chest. 2. Aortic atherosclerosis. Report reviewed and signed by : Dr. Chavez Prasad on 12/03/2024 9:17 PM.Workstation Name - [id number] -------- FINAL REPORT -------- Dictated By: Chavez Prasad Dictated Date: 12/03/2024 21:16 ET Assigned Physician: Chavez Prasad Reviewed and Electronically Signed By: Chavez Prasad Signed Date: 12/03/2024 21:17 ET Workstation ID: [id number] Transcribed By: Self Edit Transcribed Date: 12/03/2024 21:16 ET Radha Choe MD IMG XR PROCEDURES Final Re sult * XR Fluoro Up To 1 Hour (Statistics)(No Report) (12/03/2024 7:21 PM EDT) Narrative RIS PACS/VR - 12/03/2024 7:21 PM EDT This order has been auto-finalized and does not contain a result. Radha Choe MD IMG FLUOROSCOPY PROCEDURES Final Result RIS PACS/VR * (ABNORMAL) Culture respiratory with gram stain (12/03/2024 7:13 PM EDT) Only the most recent of2 resultswithin the time period is included. Culture, Respiratory No growth at 3 days 12/07/2024 10:03 AM EDT [facility] Gram Stain Result Less than 25 WBCS and less than 10 Epithelial cells(A) 12/07/2024 10:03 AM EDT [facility] Gram Stain Result Few WBCs present(A) 12/07/2024 10:03 AM EDT [facility] Gram Stain Result None Epithelial cells(A) 12/07/2024 10:03 AM EDT [facility] Gram Stain Result No organisms seen(A) 12/07/2024 10:03 AM EDT [facility] Wash Structure of upper lobe of left lung / Unknown 12/03/2024 7:13 PM EDT 12/03/2024 8:00 PM EDT Comment:NO CONCERN FOR TB Radha Choe MD LAB MICROBIOLOGY - GENERAL ORDERABLES Final Result [facility] [address] [place] [address], [place] [phone] * Culture AFB and smear (12/03/2024 7:13 PM EDT) Only the most recent of2 resultswithin the time period is included. Culture AFB No AFB isolated after 6 weeks. 01/15/2025 12:12 PM EDT [facility] AFB Stain No Acid fast bacilli seen 01/15/2025 12:12 PM EDT [facility] Wash Structure of upper lobe of left lung / Unknown 12/03/2024 7:13 PM EDT 12/03/2024 8:00 PM EDT Comment:NO CONCERN FOR TB Radha Choe MD LAB MICROBIOLOGY - GENERAL ORDERABLES Final Result [facility] [address] [place] [id number], [place] [phone] * Culture fungus, miscellaneous source (12/03/2024 7:13 PM EDT) Only the most recent of2 resultswithin the time period is included. Culture, Fungus No Yeast or Mold isolated after 4 Weeks. 01/01/2025 2:01 PM EDT [facility] Wash Structure of upper lobe of left lung / Unknown 12/03/2024 7:13 PM EDT 12/03/2024 8:00 PM EDT Comment:NO CONCERN FOR TB Radha Choe MD LAB MICROBIOLOGY - GENERAL ORDERABLES Final Result [facility] [facility] [address] [place] [address], [place] [phone] * Tissue exam (12/03/2024 6:44 PM EDT) Final Diagnosis A. Lung, right upper lobe, cryobiopsy: Benign lung tissue with chronic inflammation, fibroelastotic scarring and overall features of organizing pneumonia. Negative for granulomas and malignancy. B. Lung, left upper lobe, cryobiopsy: Benign lung tissue with chronic inflammation, fibroelastotic scarring and overall features of organizing pneumonia. Negative for granulomas and malignancy. Comment: This case has been reviewed at the intradepartmental consensus conference at [place], [place] on 12/05/2024. 12/05/2024 2:47 PM EDT [facility] Gross Description A. Lung, Right Upper Lobe, CRYO RUL: Received in formalin labeled cryo RUL lung are multiple mckeon-pink tissue fragments ranging from 0.1 cm to 0.2 cm in diameter which are filtered and submitted in toto in 1 cassette labeled A1, multiple pieces. LNS (PA, ASCP)CM - 12/04/24 B. Lung, Left Upper Lobe, CRYO MARY: Received in formalin labeled Cryo MARY lung are multiple mckeon-pink tissue fragments range from 0.1 cm to 0.2 cm in diameter which are filtered and submitted in toto in 1 cassette labeled B1, multiple pieces. LNS (PA, ASCP)CM - 12/04/24 12/05/2024 2:47 PM EDT [facility] Disclaimer The technical components of this case were performed at [address] [address] CLIA # [id number] 12/05/2024 2:47 PM EDT [facility] Tissue Structure of upper lobe of right lung / Unknown 12/03/2024 6:44 PM EDT 12/04/2024 7:52 AM EDT Tissue specimen (specimen) Structure of upper lobe of left lung / Unknown 12/03/2024 7:08 PM EDT 12/04/2024 7:52 AM EDT us Radha Choe MD LAB PATHOLOGY ORDERABLES F inal Result [facility] [address] [place] [id number], * Non-gynecologic cytology (12/03/2024 6:34 PM EDT) Final Diagnosis A. Lung, right upper lobe, fine-needle aspiration (ThinPrep and cell block): Negative for malignancy. Benign bronchial cells, macrophages and mixed inflammatory cells. B. Lung, left upper lobe, fine-needle aspiration (ThinPrep and cell block): Negative for malignancy. Paucicellular specimen showing rare benign bronchial cells, macrophages and scattered mixed inflammatory cells C. Lung, left upper lobe, wash (ThinPrep and cell block): Negative for malignancy. Benign bronchial cells, macrophages and mixed inflammatory cells. D. 11R lymph node, fine-needle aspiration (ThinPrep and cell block): Negative for malignancy. Benign bronchial cells and lymphocytes consistent with lymph node sampling. E. Level 7 lymph node, fine-needle aspiration (ThinPrep and cell block): Negative for malignancy. Benign bronchial cells and lymphocytes consistent with lymph node sampling. 12/05/2024 2:48 PM EDT [facility] Specimen A Adequacy Satisfactory for evaluation 12/05/2024 2:48 PM EDT [facility] Specimen B Adequacy Scant cellularity 12/05/2024 2:48 PM EDT [facility] Specimen C Adequacy Satisfactory for evaluation 12/05/2024 2:48 PM EDT [facility] Specimen D Adequacy Satisfactory for evaluation 12/05/2024 2:48 PM EDT [facility] Specimen E Adequacy Satisfactory for evaluation 12/05/2024 2:48 PM EDT [facility] Clinical Information IN CYTO 12/05/2024 2:48 PM EDT [facility] Gross Description A. Lung, Right Upper Lobe, FNA RUL: Received: 42 cc pink CytoLyt with clots for ThinPrep and Cell Block. B. Lung, Left Upper Lobe, FNA MARY: Received: 40 cc clear CytoLyt for ThinPrep and Cell Block. C. Lung, Left Upper Lobe, WASH MARY: Received: 32 cc pink CytoLyt with tissue fragments for ThinPrep and Cell Block. D. Lymph Node, FNA 11R: Received: 38 cc light pink CytoLyt with tissue fragments for ThinPrep and Cell Block. E. Lymph Node, FNA LEVEL 7: Received: 34 cc clear CytoLyt for ThinPrep and Cell Block. 12/05/2024 2:48 PM EDT [facility] Disclaimer The technical components of this case were performed at [address] [address] CLIA # [id number] 12/05/2024 2:48 PM EDT [facility] Fine Needle Aspirate Structure of upper lobe of right lung / Unknown 12/03/2024 6:34 PM EDT 12/03/2024 9:07 PM EDT Comment:IN CYTO Specimen obtained by fine needle aspiration procedure (specimen) Structure of upper lobe of left lung / Unknown 12/03/2024 7:03 PM EDT 12/03/2024 9:07 PM EDT Comment:IN CYTO Specimen obtained by lavage (specimen) Structure of upper lobe of left lung / Unknown 12/03/2024 7:15 PM EDT 12/03/2024 9:07 PM EDT Comment:IN CYTO Specimen obtained by fine needle aspiration procedure (specimen) Lymph node specimen / Unknown 12/03/2024 7:18 PM EDT 12/03/2024 9:07 PM EDT Comment:IN CYTO Specimen obtained by fine needle aspiration procedure (specimen) Lymph node specimen / Unknown 12/03/2024 7:25 PM EDT 12/03/2024 9:07 PM EDT Comment:IN CYTO us Radha Choe MD LAB CYTOLOGY ORDERABLES Fi nal Result [facility] [address] [place] [id number], * TH AN ENDOTRACHEAL(NO CHARGE) (12/03/2024 6:23 PM EDT) Narrative Ashli Kate MD - 12/03/2024 6:23 PM EDT Ashli Kate MD 12/03/2024 6:24 PM General Information and Staff Patient location during procedure: [place] Anesthesiologist: Ashli Kate MD Performed: anesthesiologist Performed by: Ashli Kate MD Authorized by: Ashli Kate MD Intubation Airway not difficult Urgency: elective Final Airway Details Successful airway: ETT Cuffed: yes Successful intubation technique: direct laryngoscopy Facilitating devices/methods: intubating stylet Endotracheal tube insertion site: oral Blade: Aminata Blade size: #3 ETT size (mm): 8.5 Cormack-Lehane Classification: grade IIa - partial view of glottis Placement verified by: chest auscultation and capnometry Measured from: lips ETT to lips (cm): 23 Number of attempts at approach: 1 Number of other approaches attempted: 0Final airway type: endotracheal airway Indications and Patient Condition Indications for airway management: anesthesia Spontaneous Ventilation: absent Preoxygenated: yes Patient position: neutral MILS maintained throughout Mask difficulty assessment: 2 - vent by mask + OA or adjuvant +/- NMBA Start Time: 12/03/2024 6:23 PMStop Time: 12/03/2024 6:23 PM us Ashli Kate MD ANESTHESIA ORDERABLES Final Result * ECG 12 lead (11/26/2024 8:23 AM EDT) Ventricular Rate ECG 89 BPM GEMUSE Atrial Rate 89 BPM GEMUSE P-R Interval 158 ms GEMUSE QRS Duration 82 ms GEMUSE Q-T Interval 362 ms GEMUSE QTc 440 ms GEMUSE P Wave [place] 77 degrees GEMUSE R [place] 33 degrees GEMUSE T [place] 54 degrees GEMUSE ECG Interpretation Normal sinus rhythm Anterior infarct , age undetermined Abnormal ECG No previous ECGs available Confirmed by VENANCIO CARRANZA ([id number]) on 11/26/2024 5:56:12 PM GEMUSE 11/26/2024 8:23 AM EDT 11/26/2024 5:56 PM EDT us Radha Choe MD ECG ORDERABLES Final Resu lt GEMUSE * (ABNORMAL) CBC auto differential (11/26/2024 8:13 AM EDT) [facility] Signature WBC 8.7 4.8 - 10.8 K/mcL LAB HEMETOLOGY METHOD 11/26/2024 8:41 AM [facility] RBC 4.50 4.50 - 5.50 M/mcL LAB HEMETOLOGY METHOD 11/26/2024 8:[address] [facility] Hemoglobin 13.4(L) 13.5 - 17.5 g/dL LAB HEMETOLOGY METHOD 11/26/2024 8:41 AM [facility] Hematocrit 40.9(L) 42.0 - 54.0 % LAB HEMETOLOGY METHOD 11/26/2024 8:41 AM [facility] MCV 91.7 79.0 - 98.0 FL LAB HEMETOLOGY METHOD 11/26/2024 8:41 AM [facility] MCH 30.0 27.0 - 32.0 pcg LAB HEMETOLOGY METHOD 11/26/2024 8:41 AM [facility] MCHC 32.8 32.0 - 37.0 g/dL LAB HEMETOLOGY METHOD 11/26/2024 8:41 AM [facility] RDW 14.2 11.0 - 15.0 % LAB HEMETOLOGY METHOD 11/26/2024 8:41 AM [facility] Platelets 235 130 - 400 K/mcL LAB HEMETOLOGY METHOD 11/26/2024 8:41 AM [facility] MPV 10.0 7.0 - 11.0 FL LAB HEMETOLOGY METHOD 11/26/2024 8:41 AM [facility] NRBC 0.0 <1.0 % LAB HEMETOLOGY METHOD 11/26/2024 8:41 AM [facility] NRBC Absolute 0.00 <0.10 K/mcL LAB HEMETOLOGY METHOD 11/26/2024 8:41 AM [facility] Neutrophils Relative 71.5 % LAB HEMETOLOGY METHOD 11/26/2024 8:41 AM [facility] Lymphocytes Relative 19.2 % LAB HEMETOLOGY METHOD 11/26/2024 8:41 AM [facility] Monocytes Relative 7.9 % LAB HEMETOLOGY METHOD 11/26/2024 8:41 AM [facility] Eosinophils Relative 0.9 % LAB HEMETOLOGY METHOD 11/26/2024 8:41 AM [facility] Basophils Relative 0.3 % LAB HEMETOLOGY METHOD 11/26/2024 8:41 AM [facility] Immature Granulocytes Relative 0.2 % LAB HEMETOLOGY METHOD 11/26/2024 8:41 AM [facility] Neutrophils Absolute 6.22 1.50 - 7.00 K/mcL LAB HEMETOLOGY METHOD 11/26/2024 8:41 AM [facility] Lymphocytes Absolute 1.67 1.00 - 5.00 K/mcL LAB HEMETOLOGY METHOD 11/26/2024 8:41 AM [facility] Monocytes Absolute 0.69 0.20 - 1.00 K/mcL LAB HEMETOLOGY METHOD 11/26/2024 8:41 AM [facility] Eosinophils Absolute 0.08 0.00 - 0.50 K/mcL LAB HEMETOLOGY METHOD 11/26/2024 8:41 AM [facility] Basophils Absolute 0.03 0.00 - 0.20 K/mcL LAB HEMETOLOGY METHOD 11/26/2024 8:41 AM [facility] Immature Granulocytes Absolute 0.02 0.00 - 0.03 K/mcL LAB HEMETOLOGY METHOD 11/26/2024 8:[address] [facility] Blood Venous blood specimen / Unknown Venipuncture / Unknown 11/26/2024 8:13 AM EDT 11/26/2024 8:31 AM EDT Radha Choe MD LAB BLOOD ORDERABLES Final Result Performing Organization Address City/[facility]/ZIP Co de Phone Number [facility] [address] [place] [address], [place] [phone] * Prothrombin time with INR (11/26/2024 8:13 AM EDT) Protime 10.6 10.6 - 13.9 sec LAB COAGULATION METHOD 11/26/2024 8:[address] [facility] INR 0.8 LAB COAGULATION METHOD 11/26/2024 8:[address] [facility] Blood Venous blood specimen / Unknown Venipuncture / Unknown 11/26/2024 8:13 AM EDT 11/26/2024 8:31 AM EDT Radha Choe MD LAB BLOOD ORDERABLES Final Result Performing Organization Address City/[facility]/ZIP Co de Phone Number [facility] [address] [place] [address], [place] [phone] * (ABNORMAL) Basic metabolic panel (11/26/2024 8:13 AM EDT) Sodium 136 133 - 145 mmol/L LAB CHEMISTRY METHOD 11/26/2024 9:[address] [facility] Potassium 4.0 3.5 - 5.5 mmol/L LAB CHEMISTRY METHOD 11/26/2024 9:[address] [facility] Chloride 104 96 - 110 mmol/L LAB CHEMISTRY METHOD 11/26/2024 9:[address] [facility] CO2 26 21 - 32 mmol/L LAB CHEMISTRY METHOD 11/26/2024 9:[address] [facility] Anion Gap 6 3 - 11 LAB CHEMISTRY METHOD 11/26/2024 9:28 AM [facility] Glucose 122(H) 70 - 100 mg/dL LAB CHEMISTRY METHOD 11/26/2024 9:28 AM [facility] BUN 13 5 - 25 mg/dL LAB CHEMISTRY METHOD 11/26/2024 9:28 AM [facility] Creatinine 0.94 0.70 - 1.30 mg/dL LAB CHEMISTRY METHOD 11/26/2024 9:28 AM [facility] eGFR 89 >=60 mL/min/1. 73m2 LAB CHEMISTRY METHOD 11/26/2024 9:28 AM [facility] Comment:Calculation based on the Chronic Kidney Disease Epidemiology Collaboration (CKD-EPI) equation refit without adjustment for race. BUN/Creatinine Ratio 13.8 LAB CHEMISTRY METHOD 11/26/2024 9:28 AM [facility] Calcium 9.0 8.5 - 10.5 mg/dL LAB CHEMISTRY METHOD 11/26/2024 9:28 AM [facility] Blood Venous blood specimen / Unknown Venipuncture / Unknown 11/26/2024 8:13 AM EDT 11/26/2024 8:31 AM EDT us Radha Choe MD LAB BLOOD ORDERABLES Final Result [facility] [address] [place] [address], [place] [phone] * CT LUNG SCREENING LOW DOSE (02/29/2024 10:05 AM EDT) Anatomical Region Laterality Modality Computed Tomogra phy 02/28/2024 8:03 AM EDT Narrative 02/29/2024 10:05 AM EDT [facility] Diagnostic Imaging Department [address] [place] [address] Patient: SURESH LAUREANO /Age/Sex: 1960 - 64 - M Unit#: [id number] Location/Status: SPDICATLS/REG CLI Mnemonic[facility] [place] Order[place] Physician: FRANCHESKA OTTO MD CT Lung Screening Low Dose - 02/28/[address]11 Report Status:Signed PROCEDURE: CT chest lung cancer screening low dose examination. INDICATION: CT lung screening. TECHNIQUE: Chest CT without intravenous contrast was performed. Low-dose examination was performed. Reformatted images were evaluated. DOSE: CTDIvol: 4.8mGy. Total exam DLP: 200.0mGy-cm COMPARISON: CT chest January 2023 and January 2022. FINDINGS: NODULES: A 4 mm nodule in the posterior medial aspect of the right upper lobe is not definitively present on the previous examination (series 3 image 85). Another 4 mm nodule in the periphery of the right upper lobe (image 86) is also new. A new 3 mm nodule is noted in the periphery of the right middle lobe (image 167). No other new or significant nodules are identified. LUNGS: Moderate emphysematous changes. OTHER: Limited views of the upper abdomen appear normal. Again noted is low attenuating nodules in the left adrenal gland consistent with adenomas. No significant mediastinal lymphadenopathy. Coronary atherosclerotic disease. Atherosclerotic disease of the aorta without aneurysm. Mild degenerative changes are noted throughout the thoracic spine. IMPRESSION: Several new pulmonary nodules are noted. Lung-RADS 3. Follow up examination is advised in 6 months. Dictating Physician: PRASANNA CARVAJAL MD Electronically Signed by: PRASANNA CARVAJAL MD Dic Date/Time: 02/29/24 0954 Sign date/Time: 02/29/24 1005 Procedure Note Prasanna Carvajal MD - 04/23/2024 [facility] Diagnostic Imaging Department [address] [place] [id number] Patient: SURESH LAUREANO /Age/Sex: 1960 - 64 - M Unit#: [id number] Location/Status: [facility] Mnemonic/Ordering Site: [facility] Ordering Physician: FRANCHESKA OTTO MD CT Lung Screening Low Dose - 02/28/24 - 08 Report Status:Signed PROCEDURE: CT chest lung cancer screening low dose examination. INDICATION: CT lung screening. TECHNIQUE: Chest CT without intravenous contrast was performed.Low-dose examination was performed. Reformatted images were evaluated. DOSE: CTDIvol: 4.8mGy. Total exam DLP: 200.0mGy-cm COMPARISON: CT chest January 2023 and January 2022. FINDINGS: NODULES: A 4 mm nodule in the posterior medial aspect of the right upperlobe is not definitively present on the previous examination (series 3 image85). Another 4 mm nodule in the periphery of the right upper lobe (image 86) isalso new. A new 3 mm nodule is noted in the periphery of the right middlelobe (image 167). No other new or significant nodules are identified. LUNGS: Moderate emphysematous changes. OTHER: Limited views of the upper abdomen appear normal. Again noted islow attenuating nodules in the left adrenal gland consistent with adenomas.No significant mediastinal lymphadenopathy. Coronary atheroscleroticdisease. Atherosclerotic disease of the aorta without aneurysm. Mild degenerative changes are noted throughout the thoracic spine. IMPRESSION: Several new pulmonary nodules are noted. Lung-RADS 3. Follow up examination is advised in 6 months. Dictating Physician: PRASANNA CARVAJAL MD Electronically Signed by: PRASANNA CARVAJAL MD Dic Date/Time: 02/29/24 0954 Sign date/Time: 02/29/24 1005 Francheska Otto MD IMG CT PROCEDURES Final Result * Lipid panel (01/29/2017) Pathologist [facility] LDL/HDL Ratio 3 0 - 4 Triglycerides 138 0 - 150 mg/dL Cholesterol 157 0 - 200 mg/dL HDL 52 >=40 mg/dL LDL Cholesterol 77 0 - 100 mg/dL Blood Venous blood specimen / Unknown Historical Provider LAB BLOOD ORDERABLES Olga Lidia l Result * Hepatitis C Screening (09/22/2016) Pathologist On license of [facility] Hepatitis C Screening abstracted Historical Provider HEALTH MAINTENANCE Final Result from Last 3 Months or Most Recently Relevant to Health Maintenance Insurance [employer] Advance Directives * Full Code - Default (Latest Code Status on File) Date Activated Date Inactivated Comments 12/03/2024 1:29 PM 12/03/2024 10:50 PM This is ord er is used when code status has not been discussed with the patient, or code status is otherwise unknown/unconfirmed To update the patient's code status, place a code status order. Do not modify or discontinue any currently active code status orders. Care Teams Photographer Finish Relationship Specialty Start Date End Date Randolph Estevez MD [address] [place] [id number] PCP - General Family Medicine 10/23/24
--- NOTE | 2025-02-20 07:48 | A.OFFVIS_ITS ---
Vital Signs 02/20/25 07:53 Height 5 ft 8 in Weight 196 lb 13.965 oz BMI 29.9 BP 150/90 H Blood Pressure Location Rt brachial Position Sitting Pulse 77 Pulse Source Pulse Oximeter Pulse Oximetry (%) 93 Oxygen Delivery Method Room Air Intake Visit Reasons: follow up Intake Note: Patient presents for RA follow up. Allergies No Known Allergies Allergy (Verified 02/20/25 07:52) Medication List - Last Reconciled 02/20/25 by Danielle Morrison MD albuterol sulfate 90 mcg/actuation (Proventil HFA) 2 puffs inhalation Q6H PRN etanercept (Enbrel SureClick) 50 mg subcut QWEEK folic acid 1 mg PO DAILY methotrexate sodium 15 mg (6 x 2.5 mg) PO QWEEK omega 1-khg-wsp-fish oil 1,000 (120-180) mg (Fish Oil) 1 cap PO DAILY umeclidinium-vilanterol 62.5-25 mcg/actuation (Anoro Ellipta) 1 inh inhalation DAILY HPI Comments Details: Patient is a 64 y.o. male current everyday smoker with COPD, thoracic aortic aneurysm and seropositive rheumatoid arthritis here today for follow up Interval History: Patient last seen 01/01/25 with me. - On Humira 40mg SC every 2 week and Methotrexate 15mg PO weekly - No new complaints with respect to his joints - Had routine CT scanning showing progression of lung nodules in the setting of current everyday smoking - Bronchoscopy and biopsy showed organizing PNA Spoke with patient's quality assurance representative, Dr. Radha Choe No concern for active disease requiring immunosuppression at this time Today, - On Humira 40mg SC every 2 week and Methotrexate 15mg PO weekly - Followed up with pulm and had repeat CT scan showing increasing size of nodules Rheumatologic History: Onset August,. RF and CCP positive Methotrexate started end of September 2016; Humira added at the end of January 2017 Humira held -02/23 - skin infection/trauma -not restarted but methotrexate continued Enbrel added 01/28 Current Rheumatology Medication(s): Humira 40mg SC weekly Methotrexate 15mg weekly Folic acid 1mg daily PFSH Medical History (Updated 07/03/24 @ 08:50 by Cassius Chase MD) Smoker Alcohol abuse Ventral hernia Surgical History History of hydrocelectomy Family History Mother Hypertension Father No problems noted. Social History Household Members: Spouse Housing: House Are you a primary home care music therapist to a significant other at home: No Do you presently have visiting nurse or other home services: No Alcohol intake: never Tobacco use type: Cigar e-Cigarette/Vaping Use: Never Used service: No Current occupational status: employed Current occupation: SELF EM[employer] Review of Systems Const Details: Review of Systems Constitutional: Denies fever, chills, weight loss ENT: Denies vision changes, eye pain or eye redness, dental caries, dry mouth GI: Denies nausea, vomiting, diarrhea, abdominal pain, change in BM Pulm: Denies hemoptysis, wheezing Cards: Denies chest pain, palpitations Skin: Denies Raynaud's, rash, nail changes, photosensitivity, [employer] EXCH[employer] REPAIRER: Denies headaches, weakness, paresthesias, recurrent falls MSK: as per HPI All other systems reviewed and are unremarkable except noted above Physical Exam Exam Exam: Vital signs reviewed Physical Examination CONSTITUITIONAL Patient alert and cooperative. Well appearing and in no apparent painful distress HEENT Conjunctiva and sclera clear. No lymphadenopathy. CHEST/RESPIRATORY SYSTEM Normal respiratory effort and able to speak in complete sentences. Clear to auscultation bilaterally. No crackles, rales, rhonchi, wheezes heard. CARDIAC SYSTEM Regular rate and rhythm. S1 and S2 heard no murmurs. Radial pulses intact bilaterally MSK Hands * Right Hand: Able to make a fist. No swelling or tenderness to palpation of these joints. Chronic flexion deformity of the 2nd PIP. Herbeden's nodes * Left Hand: Able to make a fist. No swelling or tenderness to palpation of these joints. Herbedens nodes noted Wrists * Right Wrist: Decreased wrist extension. No swelling or TTP * Left Wrist: Decreased wrist extension. No swelling or TTP Elbows * Right Elbow: Full ROM. No swelling or TTP. No TTP of the medial and lateral epicondyles * Left Elbow: Full ROM. No swelling or TTP. No TTP of the medial and lateral epicondyles Shoulders * Right shoulder: Full ROM. No swelling noted. No TTP of the AC joint, subacromial bursa or posterior shoulder * Left shoulder: Full ROM. No swelling noted. No TTP of the AC joint, subacromial bursa or posterior shoulder Knees * Right knee: Full ROM. No swelling noted. No TTP of the knee joint lie or pes anserine bursa * Left knee: Full ROM. No swelling noted. No TTP of the knee joint lie or pes anserine bursa. * Crepitations felt bilaterally Ankles * Right ankle: Good ankle dorsiflexion and plantar flexion. No swelling. No TTP of the ankle joint * Left ankle: Good ankle dorsiflexion and plantar flexion. No swelling. No TTP of the ankle joint Feet * Right foot: Negative squeeze test * Left foot: Negative squeeze test Tender points? * No tenderness to palpation of the bilateral trapezius, supraspinatus, anterior costochondral junctions, bilateral suboccipital muscle insertions SKIN No rashes Vital Signs: Last Vital Signs Pulse 77 02/20/25 07:53 BP 150/90 H 02/20/25 07:53 Pulse Ox 93 02/20/25 07:53 Oxygen Delivery Method Room Air 02/20/25 07:53 BMI result Body Mass Index 29.9 Results Reviewed Results Reviewed: Laboratory Tests 12/16/24 10:54 WBC 10.0 RBC 4.98 Hgb 15.0 Hct 46.4 Plt Count 234 ESR 11 Sodium 141 Potassium 4.3 Chloride 105 Carbon Dioxide 27 BUN 12 Creatinine 0.95 AST 27 ALT 22 C-Reactive Protein 0.70 H Assessment & Plan Assessment & Plan (1) Seropositive rheumatoid arthritis of multiple joints: Comment: Onset August,. RF and CCP positive Methotrexate started end of September 2016; Humira added at the end of January 2017 Humira held -02/23 - skin infection/trauma -not restarted but methotrexate continued Enbrel added 01/28 Code(s): M05.79 - Rheumatoid arthritis with rheumatoid factor of multiple sites without organ or systems involvement Category: Medical Plan: #Seropositive RA Patient is a 64 y.o male with seropositive RA here today for follow up. Pulmonary nodules worsening RA joint symptoms stable Organizing pneumonia can be present even in patient's with well controlled RA and on TNF inhibitors. Orencia has been shown to be efficacious in RA associated ILD Plan - Stop Enbrel - Start Orencia 125mg SC weekly - Methotrexate 15mg weekly for now, will plan to stop this if there is good sx control on Orencia - Folic acid 1 mg daily - RTC 3 months Sachin S, Pratibha Y, Aakash M. Organizing Pneumonia in Rheumatoid Arthritis Patients: A Case-Based Review. Clin Med Insights Circ Respir Pulm Med. 2014May 04;9(Suppl 1):69-80. doi: 10.[facility]7/[facility].C88122. PMID: 60594261; PMCID: [id number]. Nila Baxter, Roxie Baxter, Patrick Baxter, Loretta Ceron. Abatacept in rheumatoid arthritis-associated interstitial lung disease: short-term outcomes and predictors of progression. Clin Rheumatol. 2020;40(12):1133-8315. doi: 10.1007/a98537-988-39271-j. Epub 2020Feb 01. PMID: 81924249; PMCID: [id number]. (2) Long-term current use of abatacept: Code(s): Z79.69 - half-way (current) use of other immunomodulators and immunosuppressants Plan: #Long-term Use of Abatacept Discussed with the patient the benefits and risks of Abatacept for the management of the rheumatic condition Benefits include reduce pain, maintenance of remission and reduction of flares as well as ?progression of the disease Risks include injection sites/infusion reactions, serious infections (such as bacterial infections, opportunistic infections), malignancy Recommended rotating injection sites, and holding medication during and for up to 1 week after resolution of a febrile illness or open skin wound (3) Encounter for methotrexate monitoring: Code(s): Z51.81 - Encounter for therapeutic drug level monitoring; Z79.631 - half-way (current) use of antimetabolite agent Plan: #Long-term Current Use of Methotrexate Discussed with patient the benefits and risks of methotrexate for managing their rheumatic condition Benefits include reduced pain, reduced mortality, maintenance of remission and reduction of flares Risks include oral ulcers, photosensitivity, hepatotoxicity, hematologic toxicity, pneumonitis, flu-like symptoms (especially day after administration), nodulosis, lymphomas ? Limit alcohol and avoid Bactrim ? Monitoring: CBC, BMP, LFTs every 3-4 months and hepatitis serologies as needed Plan I spent 30 minutes reviewing the record and labs, taking a history, examining the patient, discussing the treatment plan and documenting in the medical record Medications: New abatacept (Orencia ClickJect) 125 mg subcut QWEEK 4 mL 5RF M05.79 - Rheumatoid arthritis with rheumatoid factor of multiple sites without organ or systems involvement Discontinued etanercept (Enbrel SureClick) Discontinued Reason: Doctor's Order 50 mg subcut QWEEK 4 mL 5RF M05.79 - Rheumatoid arthritis with rheumatoid factor of multiple sites without organ or systems involvement Coding Level of Care Code Est Pt Level 4 (33352) Complex EM visit Add On G2211 Diagnoses Seropositive rheumatoid arthritis of multiple joints M05.79 Long-term current use of abatacept Z79.69 Encounter for methotrexate monitoring Z51.81; Z79.631
[2025-02-20 07:53] VITALS: BP 150/90; PULSE 77; O2SAT 93; BMI 29.9
== END 2025-02-20 08:22 | disposition home or self-care (01) ==
LOC: HO.RHES 07:40
PROVIDERS: PCP Internal Medicine; Visit Provider Student in an Organized Health Care Education/Training Program
DX: M05.79 Rheumatoid arthritis with rheumatoid factor of multiple sites without organ or systems involvement (principal); Z79.69 Long term (current) use of other immunomodulators and immunosuppressants; Z51.81 Encounter for therapeutic drug level monitoring; Z79.631 Long term (current) use of antimetabolite agent
CPT/HCPCS: 99214

== ENCOUNTER 2025-05-15 08:31 | Outpatient (REF) | payer OTHER, SELFPAY ==
--- OUTSIDE RECORDS SUMMARY | 2025-05-15 09:05 | XMS_ITS | Clinical Summary ---
Author Organization [facility] Address [address] [place] [address] Phone Care Team Providers Care [employer] Field Technician Name Role Phone Randolph Estevez MD Primary Care Provider [phone] Allergies No known active allergies Medications etanercept (EnbreL SureClick) 50 mg/mL (1 mL) injection pen 1 (one) time per week. Sunday 4 Active methotrexate 2.5 mg tablet 1 (one) [...] FIND Med Name: OTC prostate supplement Active Orencia ClickJect 125 mg/mL injection 1 (one) time per week. 5 Active albuterol HFA (PROAIR HFA ; PROVENTIL HFA ; VENTOLIN HFA) 90 mcg/actuation inhaler Inhale 2 puffs by mouth every 4 (four) hours if needed for wheezing. 25.5 g 1 5 04/07/20 26 Active Active Problems Problem Noted Date Diagnosed Date Mucus plugging of bronchi 06/20/2019 Pulmonary nodules 12/05/2017 Overview (07/03/2024): follows with pulmonology Aneurysm of thoracic aorta ([facility] V24) 017 Overview (07/03/2024): 4.1 cm, on lung cancer screening 2016, follows with CT surgery, Dr. Gale , per pt, yeatrly follow up Chronic obstructive pulmonar y disease ([facility] V24, [facility] V28) 11/10/2016 Seropositive rheumatoid arth ritis of multiple sites ([facility] V24, [facility] V28) 09/25/2016 Overview (07/03/2024): Onset August,. RF and CCP positive Methotrexate started end of September 2016; Humira added at the end of January 2017 Humira held -02/23 - skin infection/trauma -not restarted but methotrexate continued Cigarette smoker 09/06/2016 Hydrocele 07/27/2011 Ventral hernia 07/27/2011 Overview (07/03/2024): IMO update Encounters Date Type Department Care Team Description 05/06/2025 7:19 AM EDT - 05/06/2025 11:59 PM EDT Hospital Encounter [facility] Pulmonary [address] [place] [phone] Organizing pneumonia ([facility] V24, [facility] V[facility]); Seropositive rheumatoid arthritis of multiple sites ([facility] V24, [facility] V28); Pulmonary nodules Discharge Disposition: Home or Self Care 04/07/2025 8:00 AM EDT Office Visit Pulmonology - [place] [address] [place] [phone] Radha Choe MD Organizing pneumonia ([facility] V24, [facility] V28) (Primary Dx); Seropositive rheumatoid arthritis of multiple sites ([facility] V24, [facility] V28); Pulmonary nodules 03/11/2025 7:38 AM EDT - 03/11/2025 11:59 PM EDT Hospital Encounter [facility] PET Scan [address] [place] [phone] Pulmonary nodules Discharge Disposition: Home or Self Care 02/13/2025 3:00 PM EDT Office Visit Pulmonology - [place] [address] [place] [address] Radha Choe MD Pulmonary nodules (Primary Dx); Seropositive rheumatoid arthritis of multiple sites ([facility] V24, [facility] V28); Chronic obstructive pulmonary disease, unspecified COPD type ([facility] V24, [facility] V28); Organizing pneumonia ([facility], [facility] V28) 02/12/2025 Telephone Pulmonology - [place] [address] [place] [address] Laura Cote MA from Last 3 Months Immunizations Immunization Administration Dates Next Due Influenza Quadravalent, MDCK [...] Date Site/Laterality Comments OTHER SURGICAL HISTORY PROCEDURE: ME EXC HYDROCELE SPRMATIC CORD UNI SPX Medical [...] week now. Aneurysm of thoracic aorta ( [facility] V24) 12/07/2016 DX:Aneurysm of thoracic aort a (HCC); COMMENT: 4.1 cm, on lung cancer screening 2017, follows with vascular , per pt, yeatrly [...] Sign Reading Time Taken Comments Blood Pressure 177/95 04/07/2025 8:14 AM EDT Pulse 87 04/07/2025 8:14 AM EDT Temperature 36.3 C (97.3 F) 04/07/2025 8:14 AM EDT Respiratory Rate 20 12/29/2024 8:28 AM EDT Oxygen Saturation 98% 04/07/2025 8:14 AM EDT Inhaled Oxygen Concentration - - Weight 88.6 kg (195 lb 4.8 oz) 04/07/2025 8:14 A M EDT Height 172.7 cm (5' 8 ) 04/07/2025 8:14 AM EDT Body Mass Index 29.7 04/07/2025 8:14 AM EDT Plan of Treatment Upcoming Encounters Date Type Department Care Team (Late st Contact Info) Description 12/29/2025 8:15 AM EDT Office Visit Pulmonology - [address] [place] [address] Soila Champagne MD [address] [place] [phone] Health Maintenance Due Date Last Done Comments [...] Procedure Name Priority Date/Time Associated Diagnosis Comments SPIROMETRY BRONCHODILATION RESPONSIVENESS PRE/POST BRONCHODILATOR ADMINISTRATION Routine 05/06/2025 8:22 AM EDT Organizing pneumonia ([facility] V24, [facility] V28) Seropositive rheumatoid arthritis of multiple sites ([facility] V24, [facility] V28) Pulmonary nodules PET CT SKULL TO MID THIGH INITIAL Routine 03/11/2025 9:30 AM EDT Pulmonary nodules CT LUNG SCREENING LOW DOSE Routine 02/29/2024 10:05 AM EDT Personal history of nicotine dependence LIPID PANEL Routine 01/29/2017 HM HEPATITIS C SCREENING Routine 09/22/2016 from Last 3 Months or Most Recently Relevant to Health Maintenance Results * Pulmonary function testing: Carbon Monoxide Diffusing Capacity, Spirometry with Bronchodilator, Nitrogen Wash Out, Pulmonary Stress Test, 6 min walk (05/06/2025 8:22 AM EDT) Narrative Marbella Singh MD - 05/06/2025 8:35 AM EDT Table formatting from the original result was not included. Images from the original result were not included. [facility] [address] [place] [id number] Pulmonary Functions Report Date of service: 05/06/25 Patient Name: Suresh Laureano Jr. Date of : 1960 Age: 65 y.o. Gender: male Ordering Provider: Radha Choe MD Diagnosis listed on Order: Organizing pneumonia ([facility] V24, [facility] V28), Pulmonary nodules, Seropositive rheumatoid arthritis of multiple sites ([facility] V24, [facility] V28) Reason for Exam: Order Questions Answers Reason for Exam: ILD, COPD Which PFTs would you like to perform? Carbon Monoxide Diffusing Capacity,Spirometry with Bronchodilator,Nitrogen Wash Out,Pulmonary Stress Test, 6 min walk Pulmonary Test Finding: Pulmonary function test interpretation. Spirometry done today reveals FEV1 of 1.29 which is 44% of the predicted value, FVC is 3.17 which is 83% of the predicted value, FEV1 to FVC ratio is 53% of the predicted value, there is no bronchodilator response. Flow-volume is consistent with obstructive pattern. Static lung volumes are within normal limit. Diffusion lung capacity is severely reduced and remains severely reduced after correction for alveolar volume. This study is consistent with severe degree of COPD without bronchodilator response for which clinical correlation is recommended. Radha Choe MD PFT ORDERABLES Final Resu lt * PET CT Skull to Mid Thigh Initial (03/11/2025 9:30 AM EDT) Anatomical Region Laterality Modality Body Radiographic Sunita ging 03/12/2025 6:30 AM EDT Impressions 03/12/2025 7:37 AM EDT 1. Multiple bilateral pulmonary nodules demonstrating mild FDG activity; favored postinfectious/postinflammatory rather than underlying malignancy given multiplicity and FDG activity. Continued follow-up is recommended to exclude developing malignancy. 2. Nonspecific activity within the prostate gland. Correlation with prostate-specific antigen values is suggested. 3. Nonspecific activity within the stomach Please note: The CT was acquired at a low radiation dose settings. The images are of nondiagnostic quality and used solely for purposes of attenuation correction and slice localization for the PET scan. If a diagnostic CT study is desired it must be ordered separately. -------- FINAL REPORT -------- Dictated By: Connie Ochoa Dictated Date: 03/12/2025 06:30 ET Assigned Physician: Connie Ochoa Reviewed and Electronically Signed By: Connie Ochoa Signed Date: 03/12/2025 07:37 ET Workstation ID: [id number] Transcribed By: Self Edit Transcribed Date: 03/12/2025 06:30 ET Narrative 03/12/2025 7:37 AM EDT INDICATION: According to the electronic medical record, history of rheumatoid arthritis with multiple pulmonary nodules. Right upper and left upper lung biopsies demonstrating benign lung tissue. TECHNIQUE: FDG PET-CT imaging was performed from the skull bases through the thighs in a single acquisition with data set reconstructed in axial, coronal, and sagittal planes at the computer workstation with fused data from both the PET imaging study and attenuation correction CT. The CT portion of the examination was done strictly for attenuation correction and is not a true diagnostic CT examination. DLP: 639 mGy-cm Radiopharmaceutical: 12.0 mCi of F-18 FDG IV. Blood glucose: 130 mg/dl. COMPARISON: Correlation is made with multiple prior chest CTs, the most recent dated 01/2025 FINDINGS: HEAD AND NECK: No abnormal FDG activity. Low-attenuation nodule in the right thyroid lobe without significant FDG activity. THORAX: Innumerable pulmonary nodules measuring up to SUV Max 1.5 on the right and 1.9 on the left. No FDG avid thoracic or axillary lymphadenopathy. ABDOMEN/PELVIS: Nonspecific activity within the stomach SUV max 6.3. Nonspecific bowel activity. Prostatic calcification with focal activity SUV max 5.5. Left-sided adrenal nodules without significant activity (SUV max 2.9 on the left and 2.4 on the right). Small florence hepatis and retroperitoneal lymph nodes without significant FDG activity. MUSCULOSKELETAL: No abnormal FDG activity. Procedure Note Connie Ochoa MD - 03/12/2025 INDICATION: According to the electronic medical record, history ofrheumatoid arthritis with multiple pulmonary nodules. Right upper andleft upper lung biopsies demonstrating benign lung tissue. TECHNIQUE: FDG PET-CT imaging was performed from the skull bases throughthe thighs in a single acquisition with data set reconstructed in axial,coronal, and sagittal planes at the computer workstation with fused datafrom both the PET imaging study and attenuation correction CT. The CTportion of the examination was done strictly for attenuation correctionand is not a true diagnostic CT examination. DLP: 639 mGy-cm Radiopharmaceutical: 12.0 mCi of F-18 FDG IV. Blood glucose: 130 mg/dl. COMPARISON: Correlation is made with multiple prior chest CTs, the mostrecent dated 01/2025 FINDINGS: HEAD AND NECK: No abnormal FDG activity. Low-attenuation nodule in theright thyroid lobe without significant FDG activity. THORAX: Innumerable pulmonary nodules measuring up to SUV Max 1.5 on theright and 1.9 on the left. No FDG avid thoracic or axillary lymphadenopathy. ABDOMEN/PELVIS: Nonspecific activity within the stomach SUV max 6.3.Nonspecific bowel activity. Prostatic calcification with focal activitySUV max 5.5. Left-sided adrenal nodules without significant activity (SUV max 2.9 onthe left and 2.4 on the right). Small florence hepatis and retroperitoneal lymph nodes without significantFDG activity. MUSCULOSKELETAL: No abnormal FDG activity. IMPRESSION: 1. Multiple bilateral pulmonary nodules demonstrating mild FDG activity;favored postinfectious/postinflammatory rather than underlying malignancygiven multiplicity and FDG activity. Continued follow-up is recommendedto exclude developing malignancy. 2. Nonspecific activity within the prostate gland. Correlation withprostate- specific antigen values is suggested. 3. Nonspecific activity within the stomach Please note: The CT was acquired at a low radiation dose settings. The images are ofnondiagnostic quality and used solely for purposes of attenuationcorrection and slice localization for the PET scan. If a diagnostic CTstudy is desired it must be ordered separately. -------- FINAL REPORT -------- Dictated By: Connie Ochoa Dictated Date: 03/12/2025 06:30 ET Assigned Physician: Connie Ochoa Reviewed and Electronically Signed By: Connie Ochoa Signed Date: 03/12/2025 07:37 ET Workstation ID: [id number] Transcribed By: Self Edit Transcribed Date: 03/12/2025 06:30 ET Radha Choe MD IMG NM PROCEDURES Final Re sult * CT LUNG SCREENING LOW DOSE (02/29/2024 10:05 AM EDT) Anatomical Region Laterality Modality Computed Tomogra phy 02/28/2024 8:03 AM EDT Narrative 02/29/2024 10:05 AM EDT [facility] Diagnostic Imaging Department [address] [place] [address] Patient: SURESH LAUREANO./Age/Sex: 1960 - 64 - M Unit#: [id number] Location/Status: SPDICATLS/REG CLI Mnemonic[facility] Ordering Physician: FRANCHESKA OTTO MD CT Lung Screening Low Dose - 02/28/24 - 811 Report Status:Signed PROCEDURE: CT chest lung cancer [...] Procedure Note Prasanna Carvajal MD - 04/23/2024 [facility] Diagnostic Imaging Department [address] [place] [address] Patient: SURESH LAUREANO /Age/Sex: 1960 - 64 - M Unit#: [id number] Location/Status: SPDICATLS/REG CLI Mnemonic/Ordering Site: [facility] Ordering Physician: FRANCHESKA OTTO MD CT Lung [...] PROCEDURES Final Result * Lipid panel (01/29/2017) LDL/HDL Ratio 3 0 - 4 Triglycerides 138 0 - 150 mg/dL Cholesterol 157 0 - 200 mg/dL HDL 52 >=40 mg/dL LDL Cholesterol 77 0 - 100 mg/dL Blood Venous blood specimen / Unknown Historical Provider LAB BLOOD ORDERABLES Olga Lidia l Result * Hepatitis C Screening (09/22/2016) Pathologist [facility] Hepatitis C Screening abstracted Historical Provider HEALTH [...] currently active code status orders. Care Teams [employer] Field Techn[employer] Relationship Specialty Start Date End Date [place] [address] PCP - General Family Medicine 10/23/24
[2025-05-15 10:23] LABS: MANUAL DIFF FLAG NO
[2025-05-15 10:38] LABS: Hematocrit 45.3 % (42.0-52.0); Hemoglobin 14.7 g/dl (14.0-18.0); Imm Gran Abs Auto 0.02 X10*3/uL (0.00-0.03); Imm Gran Pct Auto 0.3 % (0.0-0.4); Lymphocytes Absolute Auto 2.2 X10*3/uL (1.2-4.9); Mean Corpuscular HGB Conc 32.5 g/dl (31.0-36.0); Mean Corpuscular Hemoglobin 30.6 pg (27.0-33.0); Mean Corpuscular Volume 94.4 fL (80.0-98.0); NRBC Abs Auto 0.000 X10*3/uL (0.0-0.012); NRBC Pct Auto 0.0 /100WBC (0.0-0.2); Platelet Count 201 X10*3/uL (160-400); Red Blood Count 4.80 X10*6/uL (4.60-5.80); White Blood Count 7.6 X10*3/uL (4.8-10.8)
[2025-05-15 10:50] LABS: Alanine Aminotransferase 21 U/L (0-40); Albumin Level 4.5 g/dL (3.5-5.0); Alkaline Phosphatase 86 U/L (39-117); Anion Gap 14 (12-20); Aspartate Amino Transferase 25 U/L (5-37); Blood Urea Nitrogen 15 mg/dL (9-16); Calcium 9.3 mg/dL (8.4-10.2); Carbon Dioxide 27 mmol/L (22-29); Chloride 107 mmol/L (96-108); Estimated Glomerular Filt Rate > 60; Potassium 4.8 mmol/L (3.3-5.1); Sodium 143 mmol/L (135-145); Total Protein 7.1 g/dL (6.5-8.0)
[2025-05-15 11:01] LABS: HBS Num1 0.77 mIU/mL (0-7.99); HBc Num1 0.03 S/CO (0.00-0.79); HBsAGNum1 0.31 S/CO (0.00-0.99); Hepatitis A Antibody IgM 0.16 Index (0-0.79); Hepatitis B Surface Antigen Negative (Negative); ~HepC Num1 0.05 S/CO (0.00-0.79); ~Hepatitis A Antibody IgM Nonreactive (Nonreactive); ~Hepatitis B Surface Antibody NONREACTIVE (Nonreactive); ~Hepatitis C Antibody Nonreactive (Nonreactive)
[2025-05-18 15:28] LABS: TS Negative Control Passed; TS Panel A 0; TS Panel B 0; TS Positive Control Passed; TSpotTB Negative (Negative)
== END 2025-05-15 08:32 | disposition home or self-care (01) ==
LOC: HO.HMGCLDS 08:31
PROVIDERS: Visit Provider Student in an Organized Health Care Education/Training Program
DX: Z11.1 Encounter for screening for respiratory tuberculosis (principal); Z01.84 Encounter for antibody response examination; M05.79 Rheumatoid arthritis with rheumatoid factor of multiple sites without organ or systems involvement
CPT/HCPCS: 36415; 80053; 85025; 85652; 86140; 86481; 86704; 86706; 86709; 86803; 87340

== ENCOUNTER 2025-05-19 07:25 | Outpatient (AMB) | payer OTHER, SELFPAY ==
--- OUTSIDE RECORDS SUMMARY | 2025-05-19 07:27 | XMS_ITS | Clinical Summary ---
Author Organization [facility] Address [address] [place] [address] Phone Care Team Providers Care Barker Peeler Name Role Phone Randolph Estevez MD Primary Care Provider [phone] Allergies No known active allergies Medications etanercept [...] follows with pulmonology Aneurysm of thoracic aorta ([facility] V24) 017 Overview (07/03/2024): 4.1 cm, on lung cancer screening 2016, follows with CT surgery, Dr. Gale , per pt, yeatrly follow up Chronic obstructive pulmonar y disease ([facility] V24, [facility] V28) 11/10/2016 Seropositive rheumatoid arth ritis of multiple sites ([facility] V24, [facility] V28) 09/25/2016 Overview (07/03/2024): Onset August,. RF [...] - 05/06/2025 11:59 PM EDT Hospital Encounter [facility] Pulmonary [address] [place] [phone] Organizing pneumonia ([facility] V24, [facility] V28); Seropositive rheumatoid arthritis of multiple sites ([facility] V24, [facility] V28); Pulmonary nodules Discharge Disposition: Home or Self Care 04/07/2025 8:00 AM EDT Office Visit Pulmonology - [place] [address] [place] [phone] Radha Choe MD Organizing pneumonia ([facility] V24, [facility] V28) (Primary Dx); Seropositive rheumatoid arthritis of multiple sites ([facility] V24, [facility] V28); Pulmonary nodules 03/11/2025 7:38 AM EDT - 03/11/2025 11:59 PM EDT Hospital Encounter [facility] PET Scan [address] [place] [phone] Pulmonary nodules Discharge Disposition: Home or Self Care from Last 3 Months Immunizations Immunization Administration [...] Date Site/Laterality Comments OTHER SURGICAL HISTORY PROCEDURE: MN EXC HYDROCELE SPRMATIC CORD UNI SPX Medical [...] Used Date Smoking Tobacco: Some Days Cigarettes 0.5 Last attempted to quit: 04/08/2019 Smokeless Tobacco: [...] 8:15 AM EDT Office Visit Pulmonology - [address] [place] [address] Soila Champagne MD [address] [place] [phone] Health Maintenance Due Date Last Done Comments Zoster Vaccines (1 of 2) 01/03/2008 COVID-19 Vaccine (3 - Pfizer risk series) 11/05/2020 10/08/2020, 09/17/2020 DTaP,Tdap,and Td Vaccines (2 - Td or Tdap) 07/27/2021 07/27/2011 Abdominal Aortic Aneurysm (AAA) Screen 06/13/2022 Cholesterol Screening (Lipid Panel) 06/13/2022 01/29/2017 Colorectal Cancer Screening: Stool Based Tests (FOBT/FIT) 06/13/2022 Social Influencers of Health Screening 06/13/2022 Depression Screening 07/09/2024 Influenza Vaccine (#1) 2025 4, 05/23/2022, 05/03/2021, Additional history exists Falls Risk Assessment 12/03/2025 12/03/2024 Hepatitis C Screening Completed 09/22/2016 Pneumococcal Vaccine: 50+ Years Completed 09/10/2023, 03/09/2019, 01/10/2017 RSV Immunization Adult Patients Completed 10/14/2023 Lung Cancer Screening (Low Dose CT) Discontinued 02/29/2024, 02/02/2023, 01/31/2022, Additional history exists HIB Vaccines Aged Out No longer eligi [...] Procedure Name Priority Date/Time Associated Diagnosis Comments HC SPIROMETRY BRONCHODILATION RESPONSIVENESS PRE/POST BRONCHODILATOR ADMINISTRATION Routine 05/06/2025 8:22 AM EDT Organizing pneumonia ([facility] V24, [facility] V28) Seropositive rheumatoid arthritis of multiple sites ([facility] V24, [facility] V28) Pulmonary nodules PET CT SKULL TO [...] 6 min walk (05/06/2025 8:22 AM EDT) Marbella Hitchcock MD - 05/06/2025 8:35 AM EDT Table formatting from the original result was not included. Images from the original result were not included. [facility] Pul[facility] [address] [place] [id number] Pulmonary Functions Report Date of service: 05/06/25 Patient Name: Suresh Laureano Jr. Date of : 1960 Age: 65 y.o. Gender: male Ordering Provider: Radha Choe MD Diagnosis listed on Order: Organizing pneumonia ([facility] V24, [facility] V28), Pulmonary nodules, Seropositive rheumatoid arthritis of multiple sites ([facility] V24, [facility] V28) Reason for Exam: Order Questions Answers [...] response for which clinical correlation is recommended. us Radha Choe MD PFT ORDERABLES Final Resu [...] Signed Date: 03/12/2025 07:37 ET Workstation ID: [id number] Transcribed By: Self Edit Transcribed Date: 03/12/2025 [...] Signed Date: 03/12/2025 07:37 ET Workstation ID: [id number] Transcribed By: Self Edit Transcribed Date: 03/12/2025 06:30 ET us Radha Choe MD IMG NM PROCEDURES Final Re sult * CT LUNG SCREENING LOW DOSE (02/29/2024 10:05 AM EDT) Anatomical Region Laterality Modality Computed Tomogra phy 02/28/2024 8:03 AM EDT Narrative 02/29/2024 10:05 AM EDT [facility] Diagnostic Imaging Department [address] [place] [address] Patient: ALLISONSURESH./Age/Sex: 1960 - 64 - M Unit#: [id number] Location/Status: [facility] Mnemonic/Ordering Site: [facility] Ordering Physician: FRANCHESKA OTTO MD CT Lung [...] Procedure Note Prasanna Carvajal MD - 04/23/2024 [facility] Diagnostic Imaging Department [address] [place] [id number] Patient: KINALYNNESURESHO.B./Age/Sex: 1960 - 64 - M Unit#: [id number] Location/Status: SPDICATLS/REG CLI Mnemonic/Ordering Site: [facility] Ordering Physician: FRANCHESKA OTTO MD CT Lung [...] advised in 6 months. Dictating Physician: PRASANNA CARVAAJL MD Electronically Signed by: PRASANNA CARVAJAL MD Dic Date/Time: 02/29/24 0954 Sign date/Time: 02/29/24 1005 Francheska Otto MD IM CT PROCEDURES Final Result * Lipid panel (01/29/2017) LDL/HDL Ratio 3 0 - 4 Triglycerides 138 0 - 150 mg/dL Cholesterol 157 0 - 200 mg/dL HDL 52 >=40 mg/dL LDL Cholesterol 77 0 - 100 mg/dL Blood Venous blood specimen / Unknown Historical Provider LAB BLOOD ORDERABLES Olga Lidia l Result * Hepatitis C Screening (09/22/2016) Hepatitis C Screening abstracted us Historical Provider HEALTH MAINTENANCE Final Result from [...] currently active code status orders. Care Teams Barker Peeler Relationship Specialty Start Date End Date Randolph Estevez MD [address] [place] [id number] PCP - General Family Medicine 10/23/24
--- NOTE | 2025-05-19 07:32 | A.OFFVIS_ITS ---
Vital Signs 05/19/25 07:38 Height 5 ft 8 in Weight 201 lb 11.567 oz BMI 30.7 BP 160/100 H Blood Pressure Location Lt brachial Position Sitting Pulse 77 Pulse Source Pulse Oximeter Pulse Oximetry (%) 95 Oxygen Delivery Method Room Air Intake Visit Reasons: 4months Intake Note: Patient presents for RA follow up. Allergies No Known Allergies Allergy (Verified 05/19/25 07:38) Medication List - Last Reconciled 05/19/25 by Danielle Morrison MD abatacept (Orencia ClickJect) 125 mg subcut QWEEK albuterol sulfate 90 mcg/actuation (Proventil HFA) 2 puffs inhalation Q6H PRN folic acid 1 mg PO DAILY methotrexate sodium 15 mg (6 x 2.5 mg) PO QWEEK omega 2-nzm-gpu-fish oil 1,000 (120-180) mg (Fish Oil) 1 cap PO DAILY umeclidinium-vilanterol 62.5-25 mcg/actuation (Anoro Ellipta) 1 inh inhalation DAILY HPI Comments Details: Patient is a 65 y.o. male current everyday smoker with COPD, thoracic aortic aneurysm and seropositive rheumatoid arthritis here today for follow up Interval History: Patient last seen 02/20/25 with me - On Enbrel 50mg SC every week and Methotrexate 15mg PO weekly - Followed up with pulm and had repeat CT scan showing increasing size of nodules - No RA activity but given the worsening pulm nodules, Started on Orencia Today - On Orencia 125mg SC weekly, Methotrexate 15mg PO weekly and folic acid 1mg daily - Orencia does not seem to working as well as Enbrel - Had an episode of hand and wrist pain that lasted for a day, and ankle pain that lasted for 3 days - Up to last week had a mild flare involving his wrists Rheumatologic History: Onset August,. RF and CCP positive Methotrexate started end of September 2016; Humira added at the end of January 2017 Humira held -02/23 - skin infection/trauma -not restarted but methotrexate continued Enbrel added 01/28 Current Rheumatology Medication(s): Orencia 125mg SC every week Methotrexate 15mg weekly Folic acid 1mg daily [facility] Medical History (Updated 07/03/24 @ 08:50 by Cassius Chase MD) Smoker Alcohol abuse Ventral hernia Surgical History History of hydrocelectomy Family History Mother Hypertension Father No problems noted. Social History Household Members: Spouse Housing: House Are you a primary healthcare administrative assistant to a significant other at home: No Do you presently have visiting nurse or other home services: No Alcohol intake: never Tobacco use type: Cigar e-Cigarette/Vaping Use: Never Used service: No Current occupational status: employed Current occupation: [employer] Review of Systems Narrative Review of Systems Constitutional: Denies fever, chills, weight loss ENT: Denies vision changes, eye pain or eye redness, dental caries, dry mouth GI: Denies nausea, vomiting, diarrhea, abdominal pain, change in BM Pulm: Denies SOB, TAYLOR, hemoptysis, wheezing Cards: Denies chest pain, palpitations Skin: Denies Raynaud's, rash, nail changes, photosensitivity, FOUNDER / CEO: Denies headaches, weakness, paresthesias, recurrent falls MSK: as per HPI All other systems reviewed and are unremarkable except noted above Physical Exam Exam Exam: Vital signs reviewed Physical Examination CONSTITUITIONAL Patient alert and cooperative. Well appearing and in no apparent painful distress MSK Hands * Right Hand: Able to make a fist. No swelling or tenderness to palpation of the MCPs, PIPs or DIPs. * Left Hand: Able to make a fist. No swelling or tenderness to palpation of the MCPs, PIPs or DIPs. * Herbedens nodes noted bilaterally with flexion deformity of the right 2nd PIP Wrists * Right Wrist: Full ROM to flexion and extension. No swelling or TTP * Left Wrist: Full ROM to flexion and extension. No swelling or TTP Elbows * Right Elbow: Full ROM. No swelling or TTP. No TTP of the medial epicondyle. No TTP of the lateral epicondyle * Left Elbow: Full ROM. No swelling or TTP. No TTP of the medial epicondyle. No TTP of the lateral epicondyle Shoulders * Right shoulder: Full ROM. No swelling noted. No TTP of the AC joint. No TTP of the subacromial bursa. No TTP of the posterior shoulder * Left shoulder: Full ROM. No swelling noted. No TTP of the AC joint. No TTP of the subacromial bursa. No TTP of the posterior shoulder Knees * Right knee: Full ROM. No swelling noted. No TTP of the knee joint line. No TTP of pes anserine bursa * Left knee: Full ROM. No swelling noted. No TTP of the knee joint line. No TTP of pes anserine bursa. * Crepitations felt bilaterally Ankles * Right ankle: Good ankle dorsiflexion and plantar flexion. No swelling. No TTP of the ankle joint * Left ankle: Good ankle dorsiflexion and plantar flexion. No swelling. No TTP of the ankle joint Feet * Right foot: Negative squeeze test * Left foot: Negative squeeze test Tender points? * No tenderness to palpation of the bilateral trapezius, supraspinatus, anterior costochondral junctions, bilateral suboccipital muscle insertions SKIN No rashes Vital Signs: Last Vital Signs Pulse 77 05/19/25 07:38 BP 160/100 H 05/19/25 07:38 Pulse Ox 95 05/19/25 07:38 Oxygen Delivery Method Room Air 05/19/25 07:38 BMI result Body Mass Index 30.7 Results Reviewed Results Reviewed: Laboratory Tests 05/15/25 08:33 WBC 7.6 RBC 4.80 Hgb 14.7 Hct 45.3 Plt Count 201 ESR 8 Sodium 143 Potassium 4.8 Chloride 107 Carbon Dioxide 27 BUN 15 Creatinine 1.10 AST 25 ALT 21 C-Reactive Protein 0.42 Laboratory Tests 05/15/25 08:33 Hepatitis A IgM Ab Nonreactive Hep Bs Antigen Negative Hep Bs Antibody NONREACTIVE Hep B Core Total Ab Nonreactive Hepatitis C Ab (EIA) Nonreactive TB Test (T-Spot) Com Negative Assessment & Plan Assessment & Plan (1) Seropositive rheumatoid arthritis of multiple joints: Comment: Onset August,. RF and CCP positive Methotrexate started end of September 2016; Humira added at the end of January 2017 Humira held -02/23 - skin infection/trauma -not restarted but methotrexate continued Enbrel added 01/28 Code(s): M05.79 - Rheumatoid arthritis with rheumatoid factor of multiple sites without organ or systems involvement Category: Medical Plan: #Seropositive RA Patient is a 65 y.o male with seropositive RA here today for follow up. Exam stable but worsening breakthrough pain on the Orencia Had better disease control on TNFs. On Enbrel he had worsening RA pulm nodules and on Humira he had infections Inflammatory markers are normal Will try Simponi 50mg SC every 4 weeeks Plan - Stop Orencia - Simponi 50mg SC every week - Methotrexate 15mg weekly for now, will plan to stop this if there is good sx control - Folic acid 1 mg daily - RTC 3 months - Labs before visit: CBC, CMP, ESR, CRP Sachin S, Pratibha Y, Aakash M. Organizing Pneumonia in Rheumatoid Arthritis Patients: A Case-Based Review. Clin Med Insights Circ Respir Pulm Med. 2015 May 04;9(Suppl 1):69-80. doi: 10.4137/CCRPM.M89195. PMID: 12643454; PMCID: [id number]. Nila Baxter, Roxie Allen M, Patrick Baxter, Radha A, Loretta F. Abatacept in rheumatoid arthritis-associated interstitial lung disease: short-term outcomes and predictors of progression. Clin Rheumatol. 2020;40(12):2854-8597. doi: 10.1007/t87114-119-28665-r. Epub 2020Feb 01. PMID: 47317989; PMCID: [id number]. 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 Limit alcohol and avoid Bactrim ? Monitoring: CBC, BMP, LFTs every 3-4 months and hepatitis serologies as needed (3) Encounter for monitoring golimumab therapy: Code(s): Z51.81 - Encounter for therapeutic drug level monitoring; Z79.899 - Other group home (current) drug therapy Plan: #Long-term Use of TNF Inhibitors: Golimumab Discussed with the patient the benefits and risks of TNF inhibitors for the management of the rheumatic condition Benefits include reduce pain, maintenance of remission and reduction of flares as well as progression of the disease Risks include injection sites/infusion reactions, serious infections (such as bacterial infections, opportunistic infections), malignancy, delaminating syndromes, autoimmune phenomena, CHF exacerbations, palmar plantar psoriasis and cytopenias Recommended rotating injection sites, and holding medication during and for up to 1 week after resolution of a febrile illness or open skin wound Plan I spent 30 minutes reviewing the record and labs, taking a history, examining the patient, discussing the treatment plan and documenting in the medical record Coding Level of Care Code Est Pt Level 4 (32718) Complex EM visit Add On G2211 Diagnoses Seropositive rheumatoid arthritis of multiple joints M05.79 Encounter for methotrexate monitoring Z51.81; Z79.631 Encounter for monitoring golimumab therapy Z51.81; Z79.899
[2025-05-19 07:38] VITALS: BP 160/100; PULSE 77; O2SAT 95; BMI 30.7
== END 2025-05-19 08:07 | disposition home or self-care (01) ==
LOC: HO.RHES 07:26
PROVIDERS: PCP Internal Medicine; Visit Provider Student in an Organized Health Care Education/Training Program
DX: M05.79 Rheumatoid arthritis with rheumatoid factor of multiple sites without organ or systems involvement (principal); Z51.81 Encounter for therapeutic drug level monitoring; Z79.631 Long term (current) use of antimetabolite agent; Z79.899 Other long term (current) drug therapy
CPT/HCPCS: 99214